=== PATIENT | female | born 1945 | race Caucasian/White ===

== ENCOUNTER 2021-03-23 17:16 | Inpatient (IN) | payer MEDICARE, OTHER ==
[~2021-03-23] VITALS: Ht 167.6 cm; Wt 70.3 kg
--- NOTE | 2021-03-23 17:16 | NUR ---
PT BIB [facility]OTHER [facility] FOR CRISIS EVAL PRIOR TO GEROPSYCH ADMISSION. PT IS AAOX2, NOT IN RESPIRATORY DISTRESS, V/S STABLE, KEPT RESTED AND COMFORTABLE. WILL CONTINUE TO MONITOR.
--- NOTE | 2021-03-23 18:13 | NUR ---
CALLED PINKY HER ETA IS 1930.
--- NOTE | 2021-03-23 18:35 | NUR ---
ER PHLEB AT BEDSIDE FOR BLOOD DRAW.
[2021-03-23 18:47] LABS: BASOPHILS % (AUTO) 0.5 % (0.0-2.0); EOSINOPHILS % (AUTO) 0.2 % (0.0-6.0); HEMATOCRIT 41 % (33-45); HEMOGLOBIN 13.5 g/dL (11.5-14.8); LYMPHOCYTES # (AUTO) 1.5 K/uL (0.8-4.8); LYMPHOCYTES % (AUTO) 23.7 % (20.0-44.0); MEAN CORPUSCULAR HGB CONC 33 g/dl (31.0-36.0); MEAN CORPUSCULAR VOLUME 90 fL (82-100); MONOCYTES # (AUTO) 0.6 K/uL (0.1-1.30); MONOCYTES % (AUTO) 9.2 % (2.0-12.0); NEUTROPHILS # (AUTO) 4.2 K/uL (1.8-8.9); NEUTROPHILS % (AUTO) 66.4 % (43.0-81.0); PLATELET COUNT (AUTO) 254 K/uL (150-450); RED BLOOD CELL COUNT(AUTO) 4.49 MIL/uL (4.0-5.2); WHITE BLOOD COUNT (AUTO) 6.3 K/uL (4.3-11.0)
[2021-03-23 19:03] LABS: CALCIUM, SERUM 8.5 mg/dL (8.5-10.1); CARBON DIOXIDE 27 mmol/L (21-32); CHLORIDE 101 mmol/L (98-107); CREATININE 0.6 mg/dL (0.6-1.3); GLUCOSE 87 mg/dL (74-106); SODIUM SERUM 137 mmol/L (136-145); UREA NITROGEN, BLOOD 7 mg/dL (7-18)
[2021-03-23 19:09] LABS: ALANINE AMINOTRANSFERASE 21 U/L (12-78); ALBUMIN 3.4 g/dL (3.4-5.0); ALKALINE PHOSPHATASE 72 U/L (46-116); ASPARTATE AMINOTRANSFERASE 16 U/L (15-37); BILIRUBIN,DIRECT 0.1 mg/dL (0.0-0.2); BILIRUBIN,TOTAL 0.3 mg/dL (0.2-1.0); TOTAL PROTEIN, SERUM 7.8 g/dL (6.4-8.2)
[2021-03-23 19:11] LABS: ACETAMINOPHEN < 2 ug/ml (10-30); ALCOHOL, BLOOD < 3 mg/dL (0-0)
[2021-03-23] MEDS ORDERED: POTASSIUM CHLORIDE 20 MEQ TAB.PRT.SR PO ONE (19:30)
--- NOTE | 2021-03-23 19:37 | NUR ---
COVID SWAB COLLECTED AND SENT TO LAB
--- NOTE | 2021-03-23 21:02 | NUR ---
gps 219
--- NOTE | 2021-03-23 21:11 | NUR ---
REPORT GIVEN TO GPS RN
--- NOTE | 2021-03-23 21:28 | NUR ---
PATIENT TRANSFERRED, VSS, NO ACUTE DISTRESS NOTED
[2021-03-23] MEDS ORDERED: BLOOD SUGAR DIAGNOSTIC 1 EACH STRIP IN ONE (22:00)
[2021-03-23] MEDS ORDERED: MAGNESIUM HYDROXIDE 30 ML UDC PO PRN (22:00)
--- NOTE | 2021-03-23 22:45 | NUR ---
GPS/DAY PORTER ADMISSION NOTES: RECEIVED 75 YEAR OLD FEMALE ON A 5150 HOLD FOR GD. PT. A/O X1-2. NO DISTRESS OR AGITATION NOTED AT THIS TIME. PT. ORIENTED TO UNIT POLICIES, ROUTINES, AND PROCEDURES. CALL SHAFFER WITHIN REACH. PT. BELONGINGS LOGGED AND CONTRABAND LOGGED AND PLACED IN LOCKED CABINET. SAFETY ENVIRONMENT OBSERVED. MEDICAL AND PSYCH DR. NOTIFIED OF PT. ADMISSION TO UNIT. FAMILY ALSO NOTIFIED OF PT. ADMISSION.
[2021-03-23 22:47] VITALS: BP 114/77
[2021-03-23] MEDS ORDERED: PANT40TA49 PO (22:51)
[2021-03-23] MEDS ORDERED: GUAI600T53 PO (22:51)
[2021-03-23] MEDS ORDERED: CHOL200059 PO (22:51)
[2021-03-23] MEDS ORDERED: TRAM50TA2 PO (22:51)
[2021-03-23] MEDS ORDERED: MIRT-91 PO (22:51)
[2021-03-23] MEDS ORDERED: AMLO-212 PO (22:51)
[2021-03-23] MEDS ORDERED: ZOFRAN (22:59)
[2021-03-23] MEDS ORDERED: VENL75TA4 PO (22:59)
[2021-03-23] MEDS ORDERED: CALC-1143 PO (22:59)
[2021-03-23] MEDS ORDERED: MONT10TA22 PO (22:59)
[2021-03-23] MEDS ORDERED: TIOT18CA3 INH (23:15)
[2021-03-23] MEDS ORDERED: ARIP15TA3 PO (23:15)
[2021-03-23] MEDS ORDERED: DICY10CA13 PO (23:15)
[2021-03-23] MEDS ORDERED: LOSA1TAB9 PO (23:15)
[2021-03-23] MEDS ORDERED: ONDA4TAB5 PO (23:15)
[2021-03-23] MEDS ORDERED: CHOL200013 PO (23:15)
[2021-03-23] MEDS ORDERED: FLUT16SP16 BNOSTRILS (23:16)
--- NOTE | 2021-03-23 23:36 | NUR ---
RN NOTE PER PATIENT TO CALL HER DAUGHTER KARTHIKEYAN VELOZ IN THE MORNING AT [phone] TO NOTIFY HER ABOUT PATIENT'S ADMISSION AT [facility] GPS UNIT. WILL INFORM KARTHIKEYAN IN THE MORNING PER PATIENT REQUEST.
[2021-03-24] MEDS ORDERED: DICYCLOMINE HCL 10 MG CAPSULE PO SCH
[2021-03-24] MEDS ORDERED: TEMAZEPAM 7.5 MG CAPSULE PO PRN
[2021-03-24 00:42] VITALS: BP 114/77
--- NOTE | 2021-03-24 01:15 | NUR ---
RN NOTE PATIENT SEEN BY DR. PICKENS AND MD RECONCILED THE MEDICATIONS. PATIENT IS SLEEPING COMFORTABLY AT THIS TIME. WILL CONTINUE TO MONITOR THE PATIENT FOR ANY CHANGE OF CONDITION.
--- NOTE | 2021-03-24 06:50 | NUR ---
RN NOTE DR. GLEZ NOTIFIED ABOUT PATIENT'S ADMISSIONS AT [facility], GPS TO ROOM 219-2.
--- NOTE | 2021-03-24 07:19 | NUR ---
RN NOTE: FAMILY NOTIFIED CALLED PATIENT'S DAUGHTER KARTHIKEYAN AT [phone] AND LEFT A VOICEMAIL INCLUDING GPS UNIT PHONE NUMBER ABOUT PATIENT'S ADMISSION AT [facility], GPS UNIT.
[2021-03-24 08:00] VITALS: BP 136/75
[2021-03-24 08:08] LABS: CREATININE 0.8 mg/dL (0.6-1.3)
[2021-03-24] MEDS ORDERED: TIOTROPIUM BROMIDE 6 CAP/BOX CAP.W.DEV IH SCH (09:00)
[2021-03-24] MEDS: CHOLECALCIFEROL 1,000 UNIT TABLET (VIT D3) PO SCH (09:06)
[2021-03-24] MEDS: CALCIUM CARBONATE (1250) 500 MG TABLET PO SCH ×2 (09:06→16:34)
[2021-03-24] MEDS: GUAIFENESIN LA 600 MG TABLET.SA PO SCH ×2 (09:06→16:34)
[2021-03-24] MEDS: MONTELUKAST SODIUM (10MG) 10 MG TABLET PO SCH (09:06)
[2021-03-24] MEDS: PANTOPRAZOLE 40 MG TABLET.DR PO SCH ×2 (09:06→16:34)
[2021-03-24] MEDS: HYDROCHLOROTHIAZIDE 25 MG TABLET PO SCH (09:07)
[2021-03-24] MEDS: AMLODIPINE BESYLATE 5 MG TABLET PO SCH (09:07)
[2021-03-24] MEDS: LOSARTAN POTASSIUM 50 MG TABLET PO SCH (09:07)
[2021-03-24] MEDS: FLUTICASONE PROPIONATE 16 GM BOTTLE NS SCH (09:08)
--- NOTE | 2021-03-24 09:49 | NUR ---
DEL Initial Discharge Plan: Pt will return back to [facility] or pt will require placement. DEL will work with the MD and treatment team to coordinate appropriate discharge.
--- NOTE | 2021-03-24 10:06 | NUR ---
Person to Notify: SW attempted to contact pt's person to notify Paty family service caseworker from [facility] ([phone]) and attempted to leave a voicemail, however, voicemail stated she is on vacation until April 04. DEL contacted main line ([phone]) of the [facility] and left a voicemail to gather collateral.
--- NOTE | 2021-03-24 10:10 | NUR ---
DEL Family Contact: DEL attempted to contact pt's daughter Ginna ([phone]) and her voicemail stated she is out of the country and to contact through email [email or web address]. DLE left a voicemail.
--- NOTE | 2021-03-24 10:19 | NUR ---
[facility] Care: DEL contacted [facility] where pt has been residing for 3-4 years. DEL spoke with Emma alexandru ([phone]) who stated pt is welcomed back upon dc. Emma expressed pt does not have DPOA and conservator. She shared that pt's daughter Ginna is in [place], however, is minimally involved and would want pt back. Emma expressed that pt has been for many years and has been having paranoia/delusionals of her ex-. Emma expressed the past two weeks she has been deteriorating. Emma shared that they do not provide transportation and that case assistant Paty arranges this. DEL will be in contact with Paty to coordinate this upon dc.
[2021-03-24] MEDS: IPRATROPIUM NEB FS 0.5 MG/2.5 ML AMPUL.NEB IH SCH ×2 (14:46→20:17)
[2021-03-24 16:00] VITALS: BP 125/91
[2021-03-24] MEDS ORDERED: MIRTAZAPINE 15 MG TABLET PO SCH (18:00)
[2021-03-24 20:00] VITALS: BP 136/80
[2021-03-24] MEDS ORDERED: ARIPIPRAZOLE 5 MG TABLET PO SCH (21:00)
[2021-03-24] MEDS: MIRTAZAPINE 15 MG TABLET PO SCH (21:24)
[2021-03-24] MEDS: TRAMADOL HCL 50 MG TABLET PO PRN (21:57)
--- NOTE | 2021-03-24 21:57 | NUR ---
GPS-RN NOTE: LOWER BACK PAIN PATIENT C/O LOWER BACK PAIN ON A PAIN SCALE OF 7/10. PRN TRAMADOL 100MG PO GIVEN. WILL CONTINUE TO REASSESS.
[2021-03-25] MEDS: IPRATROPIUM NEB FS 0.5 MG/2.5 ML AMPUL.NEB IH SCH ×4 (02:07→19:30)
[2021-03-25] MEDS: ACETAMINOPHEN 325 MG TABLET PO PRN (05:31)
[2021-03-25 08:00] VITALS: BP 107/64
[2021-03-25] MEDS: CHOLECALCIFEROL 1,000 UNIT TABLET (VIT D3) PO SCH (08:23)
[2021-03-25] MEDS: PANTOPRAZOLE 40 MG TABLET.DR PO SCH ×2 (08:23→17:03)
[2021-03-25] MEDS: GUAIFENESIN LA 600 MG TABLET.SA PO SCH ×2 (08:23→17:03)
[2021-03-25] MEDS: AMLODIPINE BESYLATE 5 MG TABLET PO SCH (08:23)
[2021-03-25] MEDS: MONTELUKAST SODIUM (10MG) 10 MG TABLET PO SCH (08:23)
[2021-03-25] MEDS: CALCIUM CARBONATE (1250) 500 MG TABLET PO SCH ×2 (08:23→17:03)
[2021-03-25] MEDS: HYDROCHLOROTHIAZIDE 25 MG TABLET PO SCH (08:24)
[2021-03-25] MEDS: LOSARTAN POTASSIUM 50 MG TABLET PO SCH (08:24)
[2021-03-25] MEDS: VENLAFAXINE XR 75 MG CAP.SR.24H PO SCH (08:26)
[2021-03-25] MEDS: FLUTICASONE PROPIONATE 16 GM BOTTLE NS SCH (08:28)
--- NOTE | 2021-03-25 10:08 | NUR ---
DEL Family Contact: DEL spoke with pt's daughter Ginna ([phone]) EMAIL: [email or web address], through email. Ginna expressed that she is minimally involved in pt's care because she lives in [place]. Daughter stated that she would want pt back to her assisted living upon discharge.
[2021-03-25] MEDS: ONDANSETRON 4 MG TAB.RAPDIS PO PRN (10:23)
[2021-03-25] MEDS: TRAMADOL HCL 50 MG TABLET PO PRN (10:57)
[2021-03-25 15:57] VITALS: BP 129/69
--- NOTE | 2021-03-25 19:30 | NUR ---
GPS RN NOTE, RECEIVED PATIENT AWAKE AND IN BED, NO S/S OR COMPLAINTS OF PAIN AT THIS TIME. PATIENT IS DISPLAYING NO S/S OF APPARENT DISTRESS AT THIS TIME. PATIENT BREATHING IS UNLABORED WITH EQUAL RISE AND FALL OF THE CHEST. PATIENT IS ALERT AND ORIENTED X 2 ON ROOM AIR WITH A SPO2 96%. PATIENT IS COMPLIANT WITH MEDICATIONS, RESPONDING, NEEDY, COOPERATIVE AND NEEDS REDIRECTION. PATIENT DENIES SUICIDAL AND HOMICIDAL IDEATIONS AT THIS TIME. PATIENT ASSISTED WITH TURNING AND REPOSITIONING Q2HR AND PRN FOR COMFORT AND CIRCULATION. PATIENT HAS NO NEEDS AT THIS TIME. PATIENT EDUCATED ON THE USE OF THE CALL SHAFFER. PATIENT BED SIDE RAILS UP X 2 FOR SAFETY. PATIENT BED IS LOCKED, LOW, WITH BED ALARM ON. WILL CONTINUE TO MONITOR THIS PATIENT Q15 MINUTES WITH THE HELP OF STAFF TO MAINTAIN SAFETY.
[2021-03-25 20:17] VITALS: BP 123/77
[2021-03-25] MEDS: MIRTAZAPINE 15 MG TABLET PO SCH (21:00)
[2021-03-25] MEDS: ARIPIPRAZOLE 5 MG TABLET PO SCH (21:00)
--- NOTE | 2021-03-25 21:22 | NUR ---
GPS RN NOTE, PATIENT REFUSED ABILIFY 15MG PO Q2100 AND REMERON 15MG PO Q2100. OFFERED AFOREMENTIONED MEDICATION THREE TIMES AND STILL PATIENT REFUSED STATING, " NO I DON'T NEED THOSE MEDICATIONS ". EDUCATED PATIENT ON THE RISKS AND BENEFITS OF TAKING AND REFUSING ABILIFY AND REMERON. WILL CONTINUE TO MONITOR THIS PATIENT WITH THE HELP OF STAFF.
[2021-03-26] MEDS: IPRATROPIUM NEB FS 0.5 MG/2.5 ML AMPUL.NEB IH SCH ×4 (01:30→21:42)
[2021-03-26 08:00] VITALS: BP 129/83
[2021-03-26] MEDS: VENLAFAXINE XR 75 MG CAP.SR.24H PO SCH ×2 (09:26→13:53)
[2021-03-26] MEDS: LOSARTAN POTASSIUM 50 MG TABLET PO SCH ×2 (09:26→14:00)
[2021-03-26] MEDS: CHOLECALCIFEROL 1,000 UNIT TABLET (VIT D3) PO SCH ×2 (09:27→13:53)
[2021-03-26] MEDS: CALCIUM CARBONATE (1250) 500 MG TABLET PO SCH ×3 (09:27→17:14)
[2021-03-26] MEDS: GUAIFENESIN LA 600 MG TABLET.SA PO SCH ×3 (09:27→17:14)
[2021-03-26] MEDS: MONTELUKAST SODIUM (10MG) 10 MG TABLET PO SCH ×2 (09:27→13:53)
[2021-03-26] MEDS: PANTOPRAZOLE 40 MG TABLET.DR PO SCH ×2 (09:27→17:14)
[2021-03-26] MEDS: AMLODIPINE BESYLATE 5 MG TABLET PO SCH ×2 (09:27→13:52)
[2021-03-26] MEDS: HYDROCHLOROTHIAZIDE 25 MG TABLET PO SCH ×2 (09:28→13:53)
[2021-03-26] MEDS: FLUTICASONE PROPIONATE 16 GM BOTTLE NS SCH (09:29)
[2021-03-26 16:00] VITALS: BP 121/86
[2021-03-26] MEDS: TRAMADOL HCL 50 MG TABLET PO PRN ×2 (18:16→22:24)
--- NOTE | 2021-03-26 18:27 | NUR ---
PATIENT COMPLAIN OF LOWER BACK PAIN MEDICATED WITH TRAMADOL WILL CONTINUE TO MONITOR .
--- NOTE | 2021-03-26 19:30 | NUR ---
GPS RN NOTE, RECEIVED PATIENT AWAKE AND IN BED, NO S/S OR COMPLAINTS OF PAIN AT THIS TIME. PATIENT IS DISPLAYING NO S/S OF APPARENT DISTRESS AT THIS TIME. PATIENT BREATHING IS UNLABORED WITH EQUAL RISE AND FALL OF THE CHEST. PATIENT IS ALERT AND ORIENTED X 2 ON ROOM AIR WITH A SPO2 97%. PATIENT IS COMPLIANT WITH MEDICATIONS, RESPONDING, NEEDY, COOPERATIVE AND NEEDS REDIRECTION. PATIENT DENIES SUICIDAL AND HOMICIDAL IDEATIONS AT THIS TIME. PATIENT ASSISTED WITH TURNING AND REPOSITIONING Q2HR AND PRN FOR COMFORT AND CIRCULATION. PATIENT HAS NO NEEDS AT THIS TIME. PATIENT EDUCATED ON THE USE OF THE CALL SHAFFER. PATIENT BED SIDE RAILS UP X 2 FOR SAFETY. PATIENT BED IS LOCKED, LOW, WITH BED ALARM ON. WILL CONTINUE TO MONITOR THIS PATIENT Q15 MINUTES WITH THE HELP OF STAFF TO MAINTAIN SAFETY.
[2021-03-26 20:11] VITALS: BP 137/77
[2021-03-26 20:14] VITALS: BP 137/77
[2021-03-26] MEDS: MIRTAZAPINE 15 MG TABLET PO SCH (21:37)
[2021-03-26] MEDS: ARIPIPRAZOLE 5 MG TABLET PO SCH (21:37)
--- NOTE | 2021-03-26 22:27 | NUR ---
GPS RN NOTE, PATIENT HAS A COMPLAINT OF LOWER BACK PAIN AT 4 OUT 10 ON THE PAIN SCALE AND IS REQUESTING ULTRAM AT THIS TIME. PATIENT VITAL SIGNS ARE STABLE. GAVE ULTRAM 100 MG PO QID PRN ORDERED. WILL REASSESS PAIN AND I WILL CONTINUE TO MONITOR THIS PATIENT WITH THE HELP OF STAFF.
[2021-03-27] MEDS: IPRATROPIUM NEB FS 0.5 MG/2.5 ML AMPUL.NEB IH SCH ×4 (01:30→19:30)
--- NOTE | 2021-03-27 01:46 | NUR ---
RT NOTE PT SLEEPING. HHN TX NOT GIVEN. NO RESP DISTRESS NOTED AT THIS TIME
[2021-03-27 08:00] VITALS: BP 101/60
[2021-03-27] MEDS: LOSARTAN POTASSIUM 50 MG TABLET PO SCH (09:00)
[2021-03-27] MEDS: GUAIFENESIN LA 600 MG TABLET.SA PO SCH ×2 (09:02→16:17)
[2021-03-27] MEDS: VENLAFAXINE XR 75 MG CAP.SR.24H PO SCH (09:02)
[2021-03-27] MEDS: AMLODIPINE BESYLATE 5 MG TABLET PO SCH (09:03)
[2021-03-27] MEDS: HYDROCHLOROTHIAZIDE 25 MG TABLET PO SCH (09:03)
[2021-03-27] MEDS: CALCIUM CARBONATE (1250) 500 MG TABLET PO SCH ×2 (09:03→16:17)
[2021-03-27] MEDS: MONTELUKAST SODIUM (10MG) 10 MG TABLET PO SCH (09:03)
[2021-03-27] MEDS: CHOLECALCIFEROL 1,000 UNIT TABLET (VIT D3) PO SCH (09:03)
[2021-03-27] MEDS: PANTOPRAZOLE 40 MG TABLET.DR PO SCH ×2 (09:04→16:16)
[2021-03-27] MEDS: ONDANSETRON 4 MG TAB.RAPDIS PO PRN ×2 (09:12→16:17)
[2021-03-27] MEDS: TRAMADOL HCL 50 MG TABLET PO PRN ×2 (09:12→16:16)
[2021-03-27] MEDS: FLUTICASONE PROPIONATE 16 GM BOTTLE NS SCH (09:48)
[2021-03-27] MEDS: MAG HYDROX/AL HYDROX/SIMETH 30 ML UDC PO PRN (10:56)
[2021-03-27 16:10] VITALS: BP 99/66
[2021-03-27 20:00] VITALS: BP 102/65
--- NOTE | 2021-03-27 20:00 | NUR ---
GPS-RN NOTE: PATIENT REFUSED WEEKLY SKIN ASSESSMENT. EXPLAINED RISKS AND BENEFITS. PATIENT CONTINUED TO REFUSE.
--- NOTE | 2021-03-27 20:24 | NUR ---
RT NOTE PT REFUSED HHN TX. SPO2 97% NO DISTRESS NOTED @ THIS TIME. RN AWARE.
[2021-03-27] MEDS: ARIPIPRAZOLE 5 MG TABLET PO SCH (21:01)
[2021-03-27] MEDS: MIRTAZAPINE 15 MG TABLET PO SCH (21:01)
[2021-03-28] MEDS: IPRATROPIUM NEB FS 0.5 MG/2.5 ML AMPUL.NEB IH SCH ×5 (01:30→20:24)
--- NOTE | 2021-03-28 07:30 | NUR ---
RN NOTES PATIENT IS NEEDY, ISOLATIVE AND WITHDRAWN. SUSPICIOUS. DELUSIONAL, SHE WAS STATING THAT SHE IS GOING TO HER TODAY. SHE IS PREOCCUPIED. SHE IS UNMOTIVATED TO SHOWER. I ENCOURAGED HER TO ATTEND GROUPS AND ASSISTED HER TO ADL.
[2021-03-28 08:00] VITALS: BP 138/70
[2021-03-28] MEDS: CHOLECALCIFEROL 1,000 UNIT TABLET (VIT D3) PO SCH (09:01)
[2021-03-28] MEDS: GUAIFENESIN LA 600 MG TABLET.SA PO SCH ×2 (09:01→17:03)
[2021-03-28] MEDS: FLUTICASONE PROPIONATE 16 GM BOTTLE NS SCH (09:01)
[2021-03-28] MEDS: LORAZEPAM 0.5 MG TABLET PO PRN (09:01)
[2021-03-28] MEDS: VENLAFAXINE XR 75 MG CAP.SR.24H PO SCH (09:01)
[2021-03-28] MEDS: CALCIUM CARBONATE (1250) 500 MG TABLET PO SCH ×2 (09:02→17:03)
[2021-03-28] MEDS: PANTOPRAZOLE 40 MG TABLET.DR PO SCH ×2 (09:02→17:03)
[2021-03-28] MEDS: LOSARTAN POTASSIUM 50 MG TABLET PO SCH (09:02)
[2021-03-28] MEDS: AMLODIPINE BESYLATE 5 MG TABLET PO SCH (09:03)
[2021-03-28] MEDS: HYDROCHLOROTHIAZIDE 25 MG TABLET PO SCH (09:03)
--- NOTE | 2021-03-28 09:10 | NUR ---
Dental Office Receptionist: SW received a call from adult protective caseworker Paty ([phone]) who stated that she will provide transportation upon dc.
[2021-03-28] MEDS: MONTELUKAST SODIUM (10MG) 10 MG TABLET PO SCH (09:12)
[2021-03-28 16:00] VITALS: BP 122/60
[2021-03-28 16:23] VITALS: BP 122/60
[2021-03-28 20:10] VITALS: BP 100/68
[2021-03-28] MEDS: MIRTAZAPINE 15 MG TABLET PO SCH (21:57)
[2021-03-28] MEDS: ARIPIPRAZOLE 5 MG TABLET PO SCH (21:58)
[2021-03-28] MEDS: ACETAMINOPHEN 325 MG TABLET PO PRN (22:01)
--- NOTE | 2021-03-28 22:01 | NUR ---
Pt co/ generalized body pain 07/21. Tylenol 650 mg po prn given as ordered. Will continue to monitor.
--- NOTE | 2021-03-28 22:25 | NUR ---
Post 1 hr Tylenol effective. HI 0/10. Frequent visual check done for safety. Will continue to monitor.
[2021-03-29] MEDS: IPRATROPIUM NEB FS 0.5 MG/2.5 ML AMPUL.NEB IH SCH ×4 (00:32→20:42)
[2021-03-29 08:00] VITALS: BP 143/71
[2021-03-29] MEDS ORDERED: VENLAFAXINE XR 75 MG CAP.SR.24H PO SCH (09:00)
[2021-03-29] MEDS: PANTOPRAZOLE 40 MG TABLET.DR PO SCH ×2 (09:32→17:36)
[2021-03-29] MEDS: AMLODIPINE BESYLATE 5 MG TABLET PO SCH (09:33)
[2021-03-29] MEDS: CALCIUM CARBONATE (1250) 500 MG TABLET PO SCH ×2 (09:43→17:36)
[2021-03-29] MEDS: GUAIFENESIN LA 600 MG TABLET.SA PO SCH ×2 (09:43→17:36)
[2021-03-29] MEDS: HYDROCHLOROTHIAZIDE 25 MG TABLET PO SCH (09:44)
[2021-03-29] MEDS: CHOLECALCIFEROL 1,000 UNIT TABLET (VIT D3) PO SCH (09:45)
[2021-03-29] MEDS: LOSARTAN POTASSIUM 50 MG TABLET PO SCH (09:45)
[2021-03-29] MEDS: FLUTICASONE PROPIONATE 16 GM BOTTLE NS SCH (09:51)
[2021-03-29] MEDS: MONTELUKAST SODIUM (10MG) 10 MG TABLET PO SCH (09:51)
[2021-03-29 16:36] VITALS: BP 119/50
[2021-03-29] MEDS: TRAMADOL HCL 50 MG TABLET PO PRN (17:43)
--- NOTE | 2021-03-29 17:43 | NUR ---
PATIENT C/O BACK PAIN 01/21 WILL CONTINUE TO MONITOR FOR PAIN.
[2021-03-29 20:15] VITALS: BP 138/60
[2021-03-29] MEDS: ARIPIPRAZOLE 5 MG TABLET PO SCH (21:33)
[2021-03-29] MEDS: MIRTAZAPINE 15 MG TABLET PO SCH (21:34)
[2021-03-30] MEDS: IPRATROPIUM NEB FS 0.5 MG/2.5 ML AMPUL.NEB IH SCH ×4 (02:07→20:05)
[2021-03-30 08:00] VITALS: BP 97/62
[2021-03-30] MEDS: HYDROCHLOROTHIAZIDE 25 MG TABLET PO SCH (09:00)
[2021-03-30] MEDS: LOSARTAN POTASSIUM 50 MG TABLET PO SCH (09:00)
[2021-03-30] MEDS: AMLODIPINE BESYLATE 5 MG TABLET PO SCH (09:00)
[2021-03-30] MEDS: ONDANSETRON 4 MG TAB.RAPDIS PO PRN ×2 (09:58→20:55)
--- NOTE | 2021-03-30 09:58 | NUR ---
GIVEN ZOFRAN FOR NAUSEA.
[2021-03-30] MEDS: FLUTICASONE PROPIONATE 16 GM BOTTLE NS SCH (11:28)
[2021-03-30] MEDS: PANTOPRAZOLE 40 MG TABLET.DR PO SCH ×2 (11:28→18:07)
[2021-03-30] MEDS: CHOLECALCIFEROL 1,000 UNIT TABLET (VIT D3) PO SCH (11:28)
[2021-03-30] MEDS: CALCIUM CARBONATE (1250) 500 MG TABLET PO SCH ×2 (11:28→18:07)
[2021-03-30] MEDS: TRAMADOL HCL 50 MG TABLET PO PRN ×2 (11:29→18:19)
[2021-03-30] MEDS: GUAIFENESIN LA 600 MG TABLET.SA PO SCH ×2 (11:29→18:07)
[2021-03-30] MEDS: MONTELUKAST SODIUM (10MG) 10 MG TABLET PO SCH (11:29)
--- NOTE | 2021-03-30 11:29 | NUR ---
GIVEN ULTRAM FOR BACK PAIN.
--- NOTE | 2021-03-30 12:44 | NUR ---
Court Hearing: Patient's court hearing for 8840 was today and it was upheld for GD.
[2021-03-30] MEDS: ACETAMINOPHEN 325 MG TABLET PO PRN (14:10)
--- NOTE | 2021-03-30 14:10 | NUR ---
GIVEN TYLENOL FOR HEADACHE.
[2021-03-30 16:00] VITALS: BP 126/58
--- NOTE | 2021-03-30 18:14 | NUR ---
just medicated with ultram for back pain.
[2021-03-30 20:00] VITALS: BP 122/74
[2021-03-30] MEDS: ARIPIPRAZOLE 5 MG TABLET PO SCH (20:55)
--- NOTE | 2021-03-30 20:55 | NUR ---
RN NOTE PT COMPLAINED OF NAUSEA. NO VOMITING NOTED. REQUESTED FOR ZOFRAN, GIVEN ORDERED. DENIES ANY PAIN AT THIS TIME, WILL CONTINUE TO MONITOR.
[2021-03-30] MEDS: MIRTAZAPINE 15 MG TABLET PO SCH (21:59)
[2021-03-31] MEDS: IPRATROPIUM NEB FS 0.5 MG/2.5 ML AMPUL.NEB IH SCH ×4 (02:03→20:10)
[2021-03-31 08:00] VITALS: BP 121/67
[2021-03-31] MEDS: HYDROCHLOROTHIAZIDE 25 MG TABLET PO SCH (08:58)
[2021-03-31] MEDS: CHOLECALCIFEROL 1,000 UNIT TABLET (VIT D3) PO SCH (08:58)
[2021-03-31] MEDS: PANTOPRAZOLE 40 MG TABLET.DR PO SCH ×2 (08:58→16:16)
[2021-03-31] MEDS: GUAIFENESIN LA 600 MG TABLET.SA PO SCH ×2 (08:58→16:16)
[2021-03-31] MEDS: CALCIUM CARBONATE (1250) 500 MG TABLET PO SCH ×2 (08:58→16:16)
[2021-03-31] MEDS: MONTELUKAST SODIUM (10MG) 10 MG TABLET PO SCH (08:58)
[2021-03-31] MEDS: LOSARTAN POTASSIUM 50 MG TABLET PO SCH (09:00)
[2021-03-31] MEDS: FLUTICASONE PROPIONATE 16 GM BOTTLE NS SCH (09:01)
[2021-03-31] MEDS: AMLODIPINE BESYLATE 5 MG TABLET PO SCH (09:02)
[2021-03-31 16:00] VITALS: BP 119/75
[2021-03-31 20:00] VITALS: BP 110/65
[2021-03-31] MEDS: ARIPIPRAZOLE 5 MG TABLET PO SCH (21:24)
[2021-03-31] MEDS: MIRTAZAPINE 15 MG TABLET PO SCH (21:24)
[2021-04-01] MEDS: IPRATROPIUM NEB FS 0.5 MG/2.5 ML AMPUL.NEB IH SCH ×4 (01:43→20:03)
[2021-04-01 08:00] VITALS: BP 110/72
[2021-04-01] MEDS ORDERED: ENSURE ENLIVE CHOC 237 ML CAN PO SCH (08:00)
[2021-04-01] MEDS: GUAIFENESIN LA 600 MG TABLET.SA PO SCH ×2 (09:02→17:28)
[2021-04-01] MEDS: CALCIUM CARBONATE (1250) 500 MG TABLET PO SCH ×2 (09:02→17:27)
[2021-04-01] MEDS: PANTOPRAZOLE 40 MG TABLET.DR PO SCH ×2 (09:02→17:27)
[2021-04-01] MEDS: CHOLECALCIFEROL 1,000 UNIT TABLET (VIT D3) PO SCH (09:02)
[2021-04-01] MEDS: MONTELUKAST SODIUM (10MG) 10 MG TABLET PO SCH (09:02)
[2021-04-01] MEDS: LOSARTAN POTASSIUM 50 MG TABLET PO SCH (09:03)
[2021-04-01] MEDS: HYDROCHLOROTHIAZIDE 25 MG TABLET PO SCH (09:03)
[2021-04-01] MEDS: AMLODIPINE BESYLATE 5 MG TABLET PO SCH (09:03)
[2021-04-01] MEDS: FLUTICASONE PROPIONATE 16 GM BOTTLE NS SCH (09:05)
[2021-04-01] MEDS: TRAMADOL HCL 50 MG TABLET PO PRN ×2 (11:35→21:14)
--- NOTE | 2021-04-01 14:34 | NUR ---
RN-NOTES CHARGE NURSE DID FAXED RX FROM DR. GLEZ TO [facility] ( FAX # [phone]). RECEIVED AND VERIFIED BY THE PHARMACY STAFF AND ITS READY FOR CREEL CLEANER UPON DISCHARGE PER THE CHARGE NURSE.
[2021-04-01 16:00] VITALS: BP 119/90
[2021-04-01] MEDS: ENSURE ENLIVE 237 ML LIQUID (VANILLA) PO SCH (17:12)
[2021-04-01] MEDS: MIRTAZAPINE 15 MG TABLET PO SCH (21:02)
[2021-04-01] MEDS: ARIPIPRAZOLE 5 MG TABLET PO SCH (21:02)
--- NOTE | 2021-04-01 21:14 | NUR ---
RN NOTE PATIENT GIVEN TRAMADOL PO 100 MG FOR SEVERE PAIN 10/10 ON HER LOWER AND MID BACK, WILL REASSESS PATIENT'S PAIN AT A LATER TIME.
[2021-04-01 21:19] VITALS: BP 95/67
[2021-04-02] MEDS: IPRATROPIUM NEB FS 0.5 MG/2.5 ML AMPUL.NEB IH SCH ×4 (01:43→20:59)
[2021-04-02 08:00] VITALS: BP 115/89
[2021-04-02] MEDS: ENSURE ENLIVE 237 ML LIQUID (VANILLA) PO SCH ×2 (08:00→16:47)
[2021-04-02] MEDS: HYDROCHLOROTHIAZIDE 25 MG TABLET PO SCH (09:00)
[2021-04-02] MEDS: AMLODIPINE BESYLATE 5 MG TABLET PO SCH (09:00)
[2021-04-02] MEDS: GUAIFENESIN LA 600 MG TABLET.SA PO SCH ×4 (09:00→17:00)
[2021-04-02] MEDS: LOSARTAN POTASSIUM 50 MG TABLET PO SCH (09:00)
[2021-04-02] MEDS: FLUTICASONE PROPIONATE 16 GM BOTTLE NS SCH (10:28)
[2021-04-02] MEDS: CALCIUM CARBONATE (1250) 500 MG TABLET PO SCH ×3 (10:32→17:00)
[2021-04-02] MEDS: CHOLECALCIFEROL 1,000 UNIT TABLET (VIT D3) PO SCH (10:32)
[2021-04-02] MEDS: MONTELUKAST SODIUM (10MG) 10 MG TABLET PO SCH (10:35)
[2021-04-02] MEDS: PANTOPRAZOLE 40 MG TABLET.DR PO SCH ×3 (10:35→17:00)
[2021-04-02] MEDS: TRAMADOL HCL 50 MG TABLET PO PRN ×3 (11:00→19:57)
[2021-04-02] MEDS: ONDANSETRON 4 MG TAB.RAPDIS PO PRN ×2 (11:00→20:47)
--- NOTE | 2021-04-02 11:00 | NUR ---
medicated for nausea and pain.
[2021-04-02 16:17] VITALS: BP 149/63
--- NOTE | 2021-04-02 16:28 | NUR ---
APPEARS TO BE RESTING COMFORTABLY IN BED.
--- NOTE | 2021-04-02 16:55 | NUR ---
GIVEN ULTRAM FOR SORE THROAT AND BACK PAIN.
--- NOTE | 2021-04-02 17:01 | NUR ---
VERY SUSPICIOUS WITH TAKING OF MEDS,SMELLING EACH PILL FIRST,THEN REFUSING ALL KADI. PILLS.
[2021-04-02 20:00] VITALS: BP 125/93
--- NOTE | 2021-04-02 20:47 | NUR ---
GPS RN NOTE PATIENT REPORTS HAVING NAUSEA BEFORE BREATHING TREATMENT. GIVEN ZOFRAN AT THIS TIME. DID PATIENT TEACHING TO NEXT TIME ASK FOR THE NAUSEA PILL BEFORE THE PAIN PILL NEXT TIME, PER PATIENT SHE DID NOT KNOW AND SHE WAS JUST SO FOCUSED ON THE PAIN HENCE SHE FORGOT. WILL CONTINUE TO MONITOR.
--- NOTE | 2021-04-02 20:56 | NUR ---
PATIENT JUST FINISHED WITH BREATHING TREATMENT. DROWSING OFF SITTING ON THE BED. I TOLD PATIENT TO BE LYING DOWN ON BED BECAUSE I DO NOT WANT HER DROWSING OFF OF THE BED AND FALLING, PER PATIENT SHE'S MORE COMFORTABLE THAT WAY AND SHE IS COMFORTABLE NOW. PER PATIENT SHE CANNOT LAY DOWN ANYWAYS BECAUSE OF HER BACK. WILL CONTINUE WITH Q15 CHECK.
[2021-04-02] MEDS: ARIPIPRAZOLE 5 MG TABLET PO SCH (21:50)
[2021-04-02] MEDS: MIRTAZAPINE 15 MG TABLET PO SCH (21:50)
[2021-04-03] MEDS: IPRATROPIUM NEB FS 0.5 MG/2.5 ML AMPUL.NEB IH SCH ×4 (01:30→20:37)
--- NOTE | 2021-04-03 02:06 | NUR ---
RT PT REFUSED TX BECAUSE SHE'S SLEEPING, RN IS AWARE. Addendum: 04/03/21 at 0208 by JASON MCCLENDON RT NO SIGN OF SOB OR RESPIRATORY DISTRESS NOTED AT THIS TIME.
[2021-04-03] MEDS: TRAMADOL HCL 50 MG TABLET PO PRN ×4 (02:26→21:09)
[2021-04-03 08:00] VITALS: BP 110/62
[2021-04-03] MEDS: ENSURE ENLIVE 237 ML LIQUID (VANILLA) PO SCH ×2 (08:22→17:22)
--- NOTE | 2021-04-03 08:23 | NUR ---
RT PT REF AM BREATHING TX, NO SOB OR RESP DISTRESS NOTED.
[2021-04-03] MEDS: MONTELUKAST SODIUM (10MG) 10 MG TABLET PO SCH (08:34)
[2021-04-03] MEDS: CALCIUM CARBONATE (1250) 500 MG TABLET PO SCH ×3 (08:34→17:18)
[2021-04-03] MEDS: GUAIFENESIN LA 600 MG TABLET.SA PO SCH ×3 (08:35→17:18)
[2021-04-03] MEDS: CHOLECALCIFEROL 1,000 UNIT TABLET (VIT D3) PO SCH (08:35)
[2021-04-03] MEDS: AMLODIPINE BESYLATE 5 MG TABLET PO SCH (08:36)
[2021-04-03] MEDS: HYDROCHLOROTHIAZIDE 25 MG TABLET PO SCH (08:36)
[2021-04-03] MEDS: LOSARTAN POTASSIUM 50 MG TABLET PO SCH (08:37)
[2021-04-03] MEDS: FLUTICASONE PROPIONATE 16 GM BOTTLE NS SCH ×2 (08:59→09:00)
[2021-04-03] MEDS: PANTOPRAZOLE 40 MG TABLET.DR PO SCH ×3 (09:00→17:18)
--- NOTE | 2021-04-03 09:00 | NUR ---
RN-CO: PT STATED KEEP THE MEDS I WILL TAKE IT AFTER AN HOUR.
--- NOTE | 2021-04-03 11:08 | NUR ---
RN-CO: PT REFUSED ALL HER MEDICATIONS, PT STATED " I WILL HAVE A SURGERY " BUT SHE CANNOT TELL WHEN IS HER SURGERY AND WHAT IS IT FOR. I EXPLAINED THE RISKS AND BENEFITS OF THE MEDICATIONS BUT SHE FIRMLY REFUSED.
[2021-04-03 16:00] VITALS: BP 129/72
[2021-04-03 20:25] VITALS: BP 108/72
[2021-04-03] MEDS: ARIPIPRAZOLE 5 MG TABLET PO SCH (21:08)
[2021-04-03] MEDS: LORAZEPAM 0.5 MG TABLET PO PRN (21:08)
[2021-04-03] MEDS: MIRTAZAPINE 15 MG TABLET PO SCH (21:09)
[2021-04-04] MEDS: IPRATROPIUM NEB FS 0.5 MG/2.5 ML AMPUL.NEB IH SCH ×4 (01:30→20:40)
--- NOTE | 2021-04-04 01:41 | NUR ---
RT NOTE PT REFUSED TX AT THIS TIME. RN DHRUV NOTIFIED AND AWARE. NO RESPIRATORY DISTRESS NOTED.
[2021-04-04 08:00] VITALS: BP 106/73
[2021-04-04] MEDS: ENSURE ENLIVE 237 ML LIQUID (VANILLA) PO SCH ×2 (08:51→16:54)
[2021-04-04] MEDS: FLUTICASONE PROPIONATE 16 GM BOTTLE NS SCH (09:00)
[2021-04-04] MEDS: CALCIUM CARBONATE (1250) 500 MG TABLET PO SCH ×2 (09:01→17:23)
[2021-04-04] MEDS: CHOLECALCIFEROL 1,000 UNIT TABLET (VIT D3) PO SCH (09:02)
[2021-04-04] MEDS: LOSARTAN POTASSIUM 50 MG TABLET PO SCH (09:02)
[2021-04-04] MEDS: HYDROCHLOROTHIAZIDE 25 MG TABLET PO SCH (09:02)
[2021-04-04] MEDS: PANTOPRAZOLE 40 MG TABLET.DR PO SCH ×2 (09:02→17:23)
[2021-04-04] MEDS: MONTELUKAST SODIUM (10MG) 10 MG TABLET PO SCH (09:02)
[2021-04-04] MEDS: GUAIFENESIN LA 600 MG TABLET.SA PO SCH ×2 (09:02→17:22)
[2021-04-04] MEDS: AMLODIPINE BESYLATE 5 MG TABLET PO SCH (09:03)
[2021-04-04 16:00] VITALS: BP 100/58
[2021-04-04] MEDS: ONDANSETRON 4 MG TAB.RAPDIS PO PRN (16:38)
[2021-04-04] MEDS: TRAMADOL HCL 50 MG TABLET PO PRN ×2 (16:39→22:17)
--- NOTE | 2021-04-04 16:40 | NUR ---
PT COMPLAINED OF NAUSEA AND BACK PAIN. ZOFRAN AND ULTRAM GIVEN INDICATED PRN. WILL CONTINUE TO MONITOR.
[2021-04-04] MEDS: ARIPIPRAZOLE 5 MG TABLET PO SCH (20:56)
[2021-04-04] MEDS: MIRTAZAPINE 15 MG TABLET PO SCH (20:56)
[2021-04-04] MEDS: MAG HYDROX/AL HYDROX/SIMETH 30 ML UDC PO PRN (21:01)
--- NOTE | 2021-04-04 21:01 | NUR ---
GPS-RN NOTES: MAALOX 30ML PO GIVEN FOR INDIGESTION. WILL CONTINUE TO MONITOR.
[2021-04-04 21:06] VITALS: BP 108/67
--- NOTE | 2021-04-04 22:17 | NUR ---
GPS-RN NOTE: LOWER BACK PAIN PATIENT C/O LOWER BACK PAIN ON A PAIN SCALE OF 7/10. PRN TRAMADOL 100MG PO GIVEN. WILL CONTINUE TO REASSESS.
[2021-04-05] MEDS: IPRATROPIUM NEB FS 0.5 MG/2.5 ML AMPUL.NEB IH SCH ×4 (01:30→19:30)
[2021-04-05 07:03] LABS: CALCIUM, SERUM 8.6 mg/dL (8.5-10.1); CREATININE 0.8 mg/dL (0.6-1.3); POTASSIUM 3.3 mmol/L (3.5-5.1)
--- NOTE | 2021-04-05 07:56 | NUR ---
SW Discharge Note: Patient will return back to [facility] located at [address] [place] [address]; ([phone]). Patients correctional case manager Paty ([phone]) will provide transportation at 1PM. Patients daughter Ginna ([phone]) is notified of pts discharge. Patient is alert and oriented x2 and is happy to be going back home. Pt denies visual/auditory hallucinations. Pt denies suicidal or homicidal ideation. Patient will follow up with (Psychiatrist) Dr. Lau located at [address], [place] [address]; ([phone]) at the facility who will monitor and provide psychotropic medications. Pt presents with euthymic mood and congruent affect. Addendum: 04/05/21 at 1338 by DEL HOPPER Discharge canceled due to patient being agitated and not wanting to leave. Dr. Hernandez notified and daughter notified.
[2021-04-05 08:00] VITALS: BP 112/63
[2021-04-05] MEDS: ENSURE ENLIVE 237 ML LIQUID (VANILLA) PO SCH ×2 (08:02→17:25)
[2021-04-05] MEDS: HYDROCHLOROTHIAZIDE 25 MG TABLET PO SCH (09:00)
[2021-04-05] MEDS: AMLODIPINE BESYLATE 5 MG TABLET PO SCH (09:00)
[2021-04-05] MEDS: LOSARTAN POTASSIUM 50 MG TABLET PO SCH (09:00)
[2021-04-05] MEDS: FLUTICASONE PROPIONATE 16 GM BOTTLE NS SCH (09:18)
[2021-04-05] MEDS: CALCIUM CARBONATE (1250) 500 MG TABLET PO SCH ×2 (09:22→17:25)
[2021-04-05] MEDS: MONTELUKAST SODIUM (10MG) 10 MG TABLET PO SCH (09:22)
[2021-04-05] MEDS: PANTOPRAZOLE 40 MG TABLET.DR PO SCH ×2 (09:23→17:25)
[2021-04-05] MEDS: CHOLECALCIFEROL 1,000 UNIT TABLET (VIT D3) PO SCH (09:23)
[2021-04-05] MEDS: GUAIFENESIN LA 600 MG TABLET.SA PO SCH ×2 (09:23→17:25)
[2021-04-05] MEDS: ONDANSETRON 4 MG TAB.RAPDIS PO PRN (10:44)
[2021-04-05] MEDS: TRAMADOL HCL 50 MG TABLET PO PRN (10:44)
--- NOTE | 2021-04-05 10:47 | NUR ---
PT COMPLAINED OF NAUSEA AND BACK PAIN. ZOFRAN AND ULTRAM GIVEN INDICATED PRN. WILL CONTINUE TO MONITOR.
[2021-04-05] MEDS ORDERED: POTASSIUM CHLORIDE 20 MEQ TAB.PRT.SR PO SCH (11:30)
[2021-04-05] MEDS: MAG HYDROX/AL HYDROX/SIMETH 30 ML UDC PO PRN (13:33)
--- NOTE | 2021-04-05 13:36 | NUR ---
MAALOX 30ML PO GIVEN FOR INDIGESTION. WILL CONTINUE TO MONITOR.
--- NOTE | 2021-04-05 14:03 | NUR ---
DEL Family Contact: DEL attempted to contact pt's daughter Ginna ([phone]) and her voicemail stated she is out of the country and to contact through email [email or web address]. DEL sent daughter and email in regards to pt's discharge and pt refusing to go back to her assisted living and that pt will need a nursing facility. DEL notified to be in contact with Paty to discuss further.
--- NOTE | 2021-04-05 14:03 | NUR ---
SNF Referral: SW contacted Yudi hale from [facility] ([phone]) for placement option. SW sent H & P notes, progress notes, and medication list.
[2021-04-05] MEDS: ARIPIPRAZOLE 5 MG TABLET PO SCH ×3 (14:07→21:41)
[2021-04-05] MEDS: DIVALPROEX SODIUM 125 MG CAP.SPRINK PO SCH ×2 (14:08→17:25)
--- NOTE | 2021-04-05 14:11 | NUR ---
PT TAKEN TO [facility] FOR DISCHARGE. AT THIS POINT PT RETURNED TO GPS UNIT PATIENCE WALDROP FROM [facility] REFUSED TO TAKE THE PATIENT DUE TO PT'S BEHAVIOR. SW AND CHARGE NURSE BROUGHT PT BACK TO GPS UNIT. WILL CONTINUE TO MONITOR. Addendum: 04/05/21 at 184 by MARCO PATTON RN DISCHARGE ORDER CANCELLED PER DR GLEZ. ALL BELONGINGS AND VALUABLES PLACED BACK IN PT'S LOCKER AND SAFE. Addendum: 04/05/21 at 185 by MARCO PATTON RN UNABLE TO PLACE BAG OF VALUABLES IN SAFE, WRITING TUTOR STATED THAT SHE COULD NOT DO THIS AT THIS TIME AND TO RETURN LATER AFTER SHIFT CHANGE. WILL ENDORSE TO MARCO EDWARDS IN ORDER TO HAVE VALUABLES PLACED IN SAFE.
--- NOTE | 2021-04-05 15:08 | NUR ---
SW Note: SW spoke with pt in regards to pt being accepted at [facility]. Pt is agreeing on going to nursing facility.
[2021-04-05 16:11] VITALS: BP 130/64
[2021-04-05 20:00] VITALS: BP 130/86
--- NOTE | 2021-04-06 01:25 | NUR ---
GPS RN NOTES: PATIENT SODIUM LEVEL 128. NOTIFIED KERZUMA VIA TEST. AWAITING RESPONSE.
[2021-04-06] MEDS: IPRATROPIUM NEB FS 0.5 MG/2.5 ML AMPUL.NEB IH SCH ×3 (01:30→13:30)
[2021-04-06] MEDS: ACETAMINOPHEN 325 MG TABLET PO PRN (05:37)
[2021-04-06 08:00] VITALS: BP 108/60
[2021-04-06] MEDS ORDERED: ARIPIPRAZOLE 5 MG TABLET PO SCH (08:00)
[2021-04-06 08:10] LABS: CALCIUM, SERUM 9.2 mg/dL (8.5-10.1); CREATININE 0.7 mg/dL (0.6-1.3); POTASSIUM 3.8 mmol/L (3.5-5.1)
[2021-04-06] MEDS: ARIPIPRAZOLE 5 MG TABLET PO SCH ×3 (08:42→17:37)
[2021-04-06] MEDS: MONTELUKAST SODIUM (10MG) 10 MG TABLET PO SCH (08:49)
[2021-04-06] MEDS: PANTOPRAZOLE 40 MG TABLET.DR PO SCH ×2 (08:49→17:43)
[2021-04-06] MEDS: CALCIUM CARBONATE (1250) 500 MG TABLET PO SCH ×2 (08:49→17:40)
[2021-04-06] MEDS: LOSARTAN POTASSIUM 50 MG TABLET PO SCH (08:50)
[2021-04-06] MEDS: GUAIFENESIN LA 600 MG TABLET.SA PO SCH ×2 (08:51→17:39)
[2021-04-06] MEDS: DIVALPROEX SODIUM 125 MG CAP.SPRINK PO SCH ×3 (08:51→17:38)
[2021-04-06] MEDS: AMLODIPINE BESYLATE 5 MG TABLET PO SCH (08:51)
[2021-04-06] MEDS: CHOLECALCIFEROL 1,000 UNIT TABLET (VIT D3) PO SCH (08:51)
[2021-04-06] MEDS: ENSURE ENLIVE 237 ML LIQUID (VANILLA) PO SCH ×2 (08:53→17:38)
[2021-04-06] MEDS: HYDROCHLOROTHIAZIDE 25 MG TABLET PO SCH (08:53)
--- NOTE | 2021-04-06 08:58 | NUR ---
DEL Family Contact: DEL attempted to contact pt's daughter Ginna ([phone]) and her voicemail stated she is out of the country and to contact through email [email or web address]. SW sent daughter an email in regards to pt's discharge and where pt got accepted. This is the second attempt SW sent email.
[2021-04-06] MEDS: FLUTICASONE PROPIONATE 16 GM BOTTLE NS SCH (09:03)
--- NOTE | 2021-04-06 09:17 | NUR ---
Director Of Public Safety: DEL contacted case liner Paty ([phone]) and stated pt will be discharged today to [facility]. She has been aware of this.
--- NOTE | 2021-04-06 09:19 | NUR ---
SW Discharge Note: Patient will be discharged to [facility] located at [address] [place] [address]; ([phone]) via ambulance. Nellie myers from [facility] accepted pt and is welcoming pt today. Patients daughter Ginna ([phone]) is notified and geriatric case manager Paty ([phone]) notified. Pt appears to be alert and oriented x2 and is willing to go to the nursing facility. Pt denies visual/auditory hallucinations. Pt denies denies suicidal or homicidal ideation. Patient will continue to follow-up with (psychiatrist) Dr. Hernandez [address], [place] [address]; ([phone]). (public relations manager) Dr. Keita [address], [place] [address]; ([phone]). Pt presented with euthymic mood and congruent affect.
--- NOTE | 2021-04-06 09:20 | NUR ---
DEL Family Contact: DEL attempted to contact pt's daughter Ginna ([phone]) and her voicemail stated she is out of the country and to contact through email [email or web address]. SW sent daughter an email in regards to pt's discharge [facility]. Pt is agreeable with this. DEL notified Paty complex case manager as well.
--- NOTE | 2021-04-06 09:41 | NUR ---
SW Discharge Note: Patient will be discharged to [facility] located at [address] [place] [address]; ([phone]) via ambulance. Nellie myers from [facility] accepted pt and is welcoming pt today. Patients daughter Ginna ([phone]) is notified and case folder Paty ([phone]) is aware. Pt appears to be alert and oriented x2 and is willing to go to the nursing facility. Pt denies visual/auditory hallucinations. Pt denies denies suicidal or homicidal ideation. Patient will continue to follow-up with (psychiatrist) Dr. Hernandez [address], [place] [address]; ([phone]). (pulp grinder and blender) Dr. Keita [address], [place] [address]; ([phone]). Pt presented with euthymic mood and congruent affect.
--- NOTE | 2021-04-06 10:06 | NUR ---
Hot Dip Tinning Supervisor: SW contacted supportive employment case manager Paty ([phone]) stated that daughter Ginna has been agreeing with the plan to go to [facility].
[2021-04-06] MEDS: TRAMADOL HCL 50 MG TABLET PO PRN (10:37)
[2021-04-06 16:00] VITALS: BP 120/69
--- NOTE | 2021-04-06 18:20 | NUR ---
Patient discharged to [facility] in stable condition.Compliant with medications ,cooperative with treatment plans Patient denies SI/HI/AVH .Behavior improved ,psychiatric tx plans met ,medical tx plans differed for for continual monitoring .Educated pt about after care plan (Exit -care)and copy provided .Returned personal belongings to patient med list given and explained to patient able to verbalize understanding, report given to Viviana BETTENCOURT in facility .Vs stable ,no c/o pain .Patient seen by and with discharge orders and prescriptions .Patient discharge at 1820 with ambulance. Addendum: 04/06/21 at 1842 by LUIS KERNS discharged to [facility].
== END 2021-04-06 18:20 | DRG 885 ==
LOC: ER 17:29 → GPS 21:05
PROVIDERS: ADMIT Psychiatry & Neurology Psychosomatic Medicine; ATTEND Internal Medicine
DX: F25.0 Schizoaffective disorder, bipolar type (principal); M32.9 Systemic lupus erythematosus, unspecified; E87.1 Hypo-osmolality and hyponatremia; F29 Unspecified psychosis not due to a substance or known physiological condition; F17.200 Nicotine dependence, unspecified, uncomplicated; I10 Essential (primary) hypertension; E87.6 Hypokalemia; F41.9 Anxiety disorder, unspecified; Z88.8 Allergy status to other drugs, medicaments and biological substances; Z73.6 Limitation of activities due to disability; G89.29 Other chronic pain; M20.40 Other hammer toe(s) (acquired), unspecified foot; L97.509 Non-pressure chronic ulcer of other part of unspecified foot with unspecified severity; F39 Unspecified mood [affective] disorder
CPT/HCPCS: 36415; 80048-TC; 80076-TC; 82565-TC; 82962-TC; 84443-TC; 85025-TC; 87081-TC; 94799-TC; 97116-TC; 97530-TC; C9803; G0480; Q0162

== ENCOUNTER 2021-08-28 10:10 | Inpatient (IN) | payer MEDICARE, OTHER ==
[~2021-08-28] VITALS: Ht 167.6 cm; Wt 62.6 kg
[~2021-08-28 10:10] MED LIST: AMLO-212 PO; ARIP15TA3 PO; CALC-1143 PO; CHOL200013 PO; DICY10CA13 PO; FLUT16SP16; GUAI600T53 PO; LOSA1TAB9 PO; MIRT-91 PO; MONT10TA22 PO; ONDA4TAB5 PO; PANT40TA49 PO; TIOT18CA3 INH; TRAM50TA2 PO; VENL75TA4 PO
--- NOTE | 2021-08-28 10:10 | NUR ---
PT NAZ FROM [facility] C/O FAILURE TO THRIVE. "SHE REFUSING TO EAT AND NOT TAKING HER MEDS." PT IS AAOX2, NOT IN RESPIRATORY DISTRESS, V/S STABLE, KEPT RESTED AND COMFORTABLE. WILL CONTINUE TO MONITOR.
--- NOTE | 2021-08-28 10:20 | NUR ---
AT BEDSIDE FOR EVAL.
[2021-08-28] MEDS ORDERED: IV NS 0.9% 1,000 ML BAG IV ONE (10:30)
[2021-08-28] MEDS ORDERED: CHOL100043 PO (10:39)
[2021-08-28] MEDS ORDERED: LOSA50TA39 PO (10:39)
[2021-08-28] MEDS ORDERED: ARIP2TAB19 PO (10:39)
[2021-08-28] MEDS ORDERED: CALC1TAB30 PO (10:39)
[2021-08-28] MEDS ORDERED: HYDR12.55 PO (10:40)
[2021-08-28] MEDS ORDERED: ARIP5TAB10 PO (10:40)
[2021-08-28] MEDS ORDERED: DIVA125C5 PO (10:40)
[2021-08-28] MEDS ORDERED: MULT-447 PO (10:40)
[2021-08-28] MEDS ORDERED: ACET-868 PO (10:40)
[2021-08-28] MEDS ORDERED: ARIP20TA4 PO (10:40)
[2021-08-28] MEDS ORDERED: LIDO30AD10 TP (10:40)
--- NOTE | 2021-08-28 10:55 | NUR ---
UNABLE TO PROVIDE URINE AT THIS TIME
[2021-08-28 11:07] LABS: CALCIUM, SERUM 9.6 mg/dL (8.5-10.1); CARBON DIOXIDE 28 mmol/L (21-32); CHLORIDE 96 mmol/L (98-107); CREATININE 0.7 mg/dL (0.6-1.3); GLUCOSE 92 mg/dL (74-106); POTASSIUM 3.5 mmol/L (3.5-5.1); SODIUM SERUM 132 mmol/L (136-145); UREA NITROGEN, BLOOD 13 mg/dL (7-18)
[2021-08-28 11:13] LABS: ALANINE AMINOTRANSFERASE 24 U/L (12-78); ALBUMIN 3.9 g/dL (3.4-5.0); ALKALINE PHOSPHATASE 90 U/L (46-116); ASPARTATE AMINOTRANSFERASE 14 U/L (15-37); BILIRUBIN,DIRECT 0.2 mg/dL (0.0-0.2); BILIRUBIN,TOTAL 0.6 mg/dL (0.2-1.0); TOTAL PROTEIN, SERUM 8.9 g/dL (6.4-8.2)
[2021-08-28 11:15] LABS: ACETAMINOPHEN 0 ug/ml (10-30)
[2021-08-28 11:23] LABS: ALCOHOL, BLOOD < 3 mg/dL (0-0)
[2021-08-28 11:27] LABS: BASOPHILS % (AUTO) 0.3 % (0.0-2.0); EOSINOPHILS % (AUTO) 0.4 % (0.0-6.0); HEMATOCRIT 43 % (33-45); HEMOGLOBIN 14.5 g/dL (11.5-14.8); LYMPHOCYTES # (AUTO) 0.8 K/uL (0.8-4.8); LYMPHOCYTES % (AUTO) 15.3 % (20.0-44.0); MEAN CORPUSCULAR HGB CONC 34 g/dl (31.0-36.0); MEAN CORPUSCULAR VOLUME 88 fL (82-100); MONOCYTES # (AUTO) 0.5 K/uL (0.1-1.30); MONOCYTES % (AUTO) 8.2 % (2.0-12.0); NEUTROPHILS # (AUTO) 4.2 K/uL (1.8-8.9); NEUTROPHILS % (AUTO) 75.8 % (43.0-81.0); PLATELET COUNT (AUTO) 238 K/uL (150-450); RED BLOOD CELL COUNT(AUTO) 4.93 MIL/uL (4.0-5.2); WHITE BLOOD COUNT (AUTO) 5.5 K/uL (4.3-11.0)
--- NOTE | 2021-08-28 11:27 | NUR ---
EKG DONE AT BEDSIDE
--- NOTE | 2021-08-28 11:59 | NUR ---
CALLED [facility] [phone] WILL COME AFTER FINISHING UP AT [facility].
--- NOTE | 2021-08-28 13:00 | NUR ---
PATIENT REFUSED TO GIVE URINE SAMPLE. SHE WAS UPSET AND DOESN'T WANT TO TALK TO ME. TOLD NURSE THAT SHE WANTS ANOTHER NURSE.
--- NOTE | 2021-08-28 13:45 | NUR ---
JAQUELIN HALL TRIED TO ENCOURAGE PATIENT TO GIVE URINE SAMPLE. PATIENT GOT UPSET AND ASKED HER TO LEAVE
--- NOTE | 2021-08-28 15:15 | NUR ---
APPROACHED PATIENT AGAIN FOR URINE SAMPLE;STILL REFUSING
--- NOTE | 2021-08-28 16:00 | NUR ---
GOT BED 211
--- NOTE | 2021-08-28 16:04 | NUR ---
COVID SWAB DONE
--- NOTE | 2021-08-28 17:25 | NUR ---
REPORT GIVEN TO SG MELISSA IN RM 211
--- NOTE | 2021-08-28 17:50 | NUR ---
IV CANNULA REMOVED. BEDBATH GIVEN TO PATIENT.
--- NOTE | 2021-08-28 18:01 | NUR ---
TRANSFERRED PATIENT TO 211 VIA STRETCHER
--- NOTE | 2021-08-28 18:24 | NUR ---
RN-CO: PATIENT REFUSED TO SIGN ADMISSION PAPERS , VITAL SIGNS AND SKIN ASSESSMENT. DR BURNS WAS CALLED AND GAVE ADMITTING ORDERS.
[2021-08-28] MEDS ORDERED: TEMAZEPAM 7.5 MG CAPSULE PO PRN (18:30)
[2021-08-28] MEDS ORDERED: LORAZEPAM 0.5 MG TABLET PO PRN (18:30)
[2021-08-28] MEDS ORDERED: BLOOD SUGAR DIAGNOSTIC 1 EACH STRIP IN ONE (18:30)
[2021-08-28] MEDS ORDERED: MAGNESIUM HYDROXIDE 30 ML UDC PO PRN (18:30)
[2021-08-28] MEDS ORDERED: MAG HYDROX/AL HYDROX/SIMETH 30 ML UDC PO PRN (18:30)
--- NOTE | 2021-08-28 19:05 | NUR ---
GPS RN APPEALS NOTES: ADMITTED A 75-Y/O, FROM [facility]. PATIENT IS ON A 72-HR HOLD FOR GD. PER HOLD, PT BIB AMBULANCE DUE TO NOT EATING, TAKING HER MEDICATIONS NOR DRINKING. PATIENT IS CONFUSED, DISORGANIZED AND DISORIENTED. UPON FACE TO FACE ASSESSMENT, PATIENT IS CONFUSED, UNCOOPERATIVE TO CARE, LABILE AND DISORGANIZED. PATIENT REFUSED TO SIGN ALL ADMISSION PAPERWORK. PATIENT REFUSED SKIN ASSESSMENT. BELONGINGS WERE INVENTORIED AND CHECKED FOR CONTRABAND. PATIENT RIGHTS WERE DISCUSSED, BOOKLET WAS GIVEN AND A GUIDE TO PRESCRIPTION MEDICATIONS PROVIDED. OFFERED PNEUMONIA VACCINE BUT PT REFUSED. PATIENT IS UNDER THE PSYCHIATRIC CARE OF DR. BURNS AND MEDICAL CARE OF DR. BENAVIDES. BED IN LOW LOCKED POSITION. SAFETY PRECAUTIONS MAINTAINED. WILL CONTINUE TO MONITOR Q15 MINS FOR MOOD, SAFETY AND BEHAVIOR.
[2021-08-28 20:00] VITALS: BP 138/95
[2021-08-28] MEDS ORDERED: ACETAMINOPHEN 325 MG TABLET PO PRN (20:30)
[2021-08-28 20:48] VITALS: BP 138/95
[2021-08-28] MEDS: risperiDONE 1 MG TABLET PO SCH (23:00)
--- NOTE | 2021-08-28 23:28 | NUR ---
GPS RN NOTES: MEDICATION REFUSAL PATIENT REFUSED SCHEDULED RISPERDAL AT 2300. DESPITE OF EDUCATION PROVIDED REGARDING MEDICATION COMPLIANCE. OFFERED X3, PATIENT CONTINUED TO REFUSE. PATIENT STATES, "NO, I DON'T TAKE ANY MEDICATION". WILL CONTINUE TO MONITOR.
--- NOTE | 2021-08-29 06:39 | NUR ---
GPS RN NOTES LEFT VOICE MESSAGE TO PATIENCE WALDROP ([phone]) REGARDING PT'S ADMISSION. WILL ENDORSE TO DAY SHIFT NURSE FOR CONTINUITY OF CARE.
--- NOTE | 2021-08-29 06:46 | NUR ---
GPS RN NOTES UNABLE TO COLLECT URINE SPECIMEN PATIENT REFUSED. PATIENT IS UNCOOPERATIVE AND PARANOID AT THIS TIME.
[2021-08-29] MEDS: PANTOPRAZOLE 40 MG TABLET.DR PO SCH ×2 (07:46→16:34)
--- NOTE | 2021-08-29 07:54 | NUR ---
RECEIVED PT AWAKE, ABLE TO COMMUNICATE AND MAKE NEEDS KNOWN, DID NOT EAT ANY OF BREAKFAST, HAD TO CRUSH MEDICATION AND HIDE IN CHOCOLATE PROTEIN SHAKE, REFUSED TO TAKE MEDICATION WHOLE EDUCATED PURPOSE AND REASON, ENCOURAGED TO EAT AND DRINK BREAKFAST REFUSED, OFFERED WATER , APPLE JUICE, COFFEE WELL, REFUSED, TRYING TO ESTABLISH TRUST AND PROVIDING REASSURANCE AND CARE NEEDED IN ORDER TO HELP PT BE COMPLIANT AND COOPERATIVE, WILL CONTINUE TO MONITOR PT AT THIS TIME.
[2021-08-29 08:00] VITALS: BP 124/95
[2021-08-29 08:16] LABS: ALBUMIN 3.7 g/dL (3.4-5.0); BILIRUBIN,TOTAL 0.6 mg/dL (0.2-1.0); CALCIUM, SERUM 9.4 mg/dL (8.5-10.1); CREATININE 0.6 mg/dL (0.6-1.3); POTASSIUM 3.5 mmol/L (3.5-5.1); TOTAL PROTEIN, SERUM 8.5 g/dL (6.4-8.2)
[2021-08-29 08:52] LABS: CHOLESTEROL 120 mg/dL (<200); HDL CHOLESTEROL 66 mg/dL (40-60); LDL 41 mg/dL (0-99); TRIGLYCERIDES 60 mg/dL (30-150)
[2021-08-29] MEDS: MULTIVITAMINS,THERAGRAN 1 UDTAB TABLET PO SCH (09:00)
[2021-08-29] MEDS: LOSARTAN POTASSIUM 50 MG TABLET PO SCH (09:00)
[2021-08-29] MEDS: LIDOCAINE 5% (PATCH) 1 EA PATCH TP SCH (09:00)
[2021-08-29] MEDS: DIVALPROEX SODIUM 125 MG CAP.SPRINK PO SCH ×3 (09:00→17:12)
[2021-08-29] MEDS: CALCIUM CARB 600MG /VIT D 1 EACH TABLET PO SCH (09:00)
[2021-08-29] MEDS: AMLODIPINE BESYLATE 5 MG TABLET PO SCH (09:00)
[2021-08-29] MEDS: FLUTICASONE PROPIONATE 16 GM BOTTLE NS SCH (09:27)
[2021-08-29] MEDS: HYDROCHLOROTHIAZIDE 25 MG TABLET PO SCH (09:28)
[2021-08-29] MEDS: MONTELUKAST SODIUM (10MG) 10 MG TABLET PO SCH (09:29)
--- NOTE | 2021-08-29 09:48 | NUR ---
DEL Initial Discharge: Pt currently resides at [facility] located at [address] [place] [address]; ([phone]). Pt would want to return back upon dc. DEL will work with the treatment team and family to help coordinate appropriate dc.
--- NOTE | 2021-08-29 09:48 | NUR ---
SW Admit Source: Pt placed on a 5150 hold for GD. Pt currently resides at [facility] located at [address] [place] [address]; ([phone]) and was uncooperative at her residence. Pt was non compliant with medications and was not eating. Pt would want to return back upon dc.
--- NOTE | 2021-08-29 10:58 | NUR ---
SW Contact: DEL contacted [facility] ([phone]) to see if pt is welcomed back upon dc. DEL spoke with Refugio myers ([phone]) who stated pt is welcomed back upon dc.
[2021-08-29] MEDS: risperiDONE 1 MG TABLET PO SCH ×2 (11:00→23:00)
--- NOTE | 2021-08-29 11:07 | NUR ---
SW Contact: SW contacted pt's piano case maker Paty ([phone]) and notified of pt's admission. Paty stated daughter lives in [place] and is involved in pt's care and she will contact the daughter through Email. Daughter wants pt back to [facility].
[2021-08-29 16:00] VITALS: BP 109/73
--- NOTE | 2021-08-29 16:35 | NUR ---
PT REFUSING TO TAKE ALL MEDICATIONS UNLESS CRUSHED AND HIDDEN INSIDE FOOD AT THIS TIME, EDUCATED REASONING AND CONSEQUENCS IF NOT TAKING THE MEDICATIONS, WILL CAREFULLY OBSERVE BEHAVIOR, ENCOURAGED HYDRATION , DRANK 3 CRANBERRY JUICES AND WATER, CALL BED LOW TO FLOOR, WHEELS LOCKED SAFETY MEASURES IN PLACE
[2021-08-29 19:45] VITALS: BP 122/68
--- NOTE | 2021-08-30 05:11 | NUR ---
RN GPS NOTE: PATIENT WAS ENCOURAGED TO TAKE HER BED TIME MEDICATIONS THIS SHIFT. 1ST ATTEMPT, PATIENT REFUSED BUT STATED SHE MAY TAKE IT LATER. CAME INTO PATIENT'S ROOM 30 MINUTES LATER AND PATIENT REFUSED AGAIN. ATTEMPTED TO EDUCATE AND ENCOURAGE PATIENT TO TAKE, BUT STILL REFUSED.
[2021-08-30] MEDS: PANTOPRAZOLE 40 MG TABLET.DR PO SCH ×2 (07:30→16:30)
[2021-08-30 08:00] VITALS: BP 120/59
[2021-08-30] MEDS: CALCIUM CARB 600MG /VIT D 1 EACH TABLET PO SCH (08:24)
[2021-08-30] MEDS: LOSARTAN POTASSIUM 50 MG TABLET PO SCH (08:24)
[2021-08-30] MEDS: MULTIVITAMINS,THERAGRAN 1 UDTAB TABLET PO SCH (08:24)
[2021-08-30] MEDS: FLUTICASONE PROPIONATE 16 GM BOTTLE NS SCH (08:25)
[2021-08-30] MEDS: DIVALPROEX SODIUM 125 MG CAP.SPRINK PO SCH ×3 (08:26→16:34)
[2021-08-30] MEDS: HYDROCHLOROTHIAZIDE 25 MG TABLET PO SCH (08:26)
[2021-08-30] MEDS: AMLODIPINE BESYLATE 5 MG TABLET PO SCH (08:26)
[2021-08-30] MEDS: MONTELUKAST SODIUM (10MG) 10 MG TABLET PO SCH (08:27)
[2021-08-30] MEDS: LIDOCAINE 5% (PATCH) 1 EA PATCH TP SCH (08:27)
--- NOTE | 2021-08-30 09:55 | NUR ---
RN-CO:PATIENT REFUSED ALL HER MORNING MEDICATIONS. MUMBLES, SEEING THINGS THAT ARE NOT THERE, TALKING TO HERSELF. SHE IS SUSPICIOUS ABOUT MEDICATIONS. SHE IS ISOLATIVE AND EASILY IRRITATED. I WILL CONTINUE TO MONIOTR AND NOTIFY .
[2021-08-30] MEDS: risperiDONE 1 MG TABLET PO SCH ×2 (11:00→23:00)
--- NOTE | 2021-08-30 12:26 | NUR ---
RN-CO: PATIENT REFUSED ALL HER MEDICATINS, DR DING MADE AWARE.
[2021-08-30 16:00] VITALS: BP 142/69
--- NOTE | 2021-08-30 19:54 | NUR ---
GPS RN OPENING NOTES: RECEIVED PATIENT IN ROOM, AWAKE, A/O X2. BLUNTED AFFECT, SUSPICIOUS, PARANOID, DISORGANIZED, UNCOOPERATIVE, ASKING STAFF TO "GET OUT OF HERE", REFUSED V/S. NO S/S OF DISTRESS. RESPIRATION EVEN AND UNLABORED WITH EQUAL RISE AND FALL OF THE CHEST, ON ROOM AIR. OFFERED FLUID AND SNACKS TOLERATED. BED IN LOW LOCKED POSITION, CALL SHAFFER WITHIN REACH. WILL CONTINUE TO MONITOR Q15 FOR MOOD, SAFETY AND BEHAVIOR.
[2021-08-30 20:00] VITALS: BP 117/79
[2021-08-30] MEDS: MUPIROCIN OINT 2% 22 GM TUBE NS SCH (21:00)
--- NOTE | 2021-08-30 22:00 | NUR ---
GPS RN NOTES: PATIENT REFUSED NURSE TO APPLY BACTROBAN TO BOTH NARES TO TREAT MRSA. PATIENT IS HOSTILE AND ASKED TO LEAVE THE ROOM.
--- NOTE | 2021-08-31 00:09 | NUR ---
GPS RN NOTES: PATIENT REFUSED 2300 RISPERIDONE 0.5MG PO.
--- NOTE | 2021-08-31 07:02 | NUR ---
GPS RN CLOSING NOTES: PATIENT IS LAYING IN BED AWAKE, A/O X1-2. PATIENT SLEPT 5HR THIS SHIFT. NO S/S OF DISTRESS NOTED. RESPIRATION EVEN AND UNLABORED WITH EQUAL RISE AND FALL OF THE CHEST, ON ROOM AIR. ALL PATIENT CARE NEEDS HAVE BEEN MET ANTICIPATED. BED IN LOW LOCKED POSITION, SIDE RAILS UP X2 FOR SAFETY. CALL SHAFFER WITHIN REACH. WILL CONTINUE TO MONITOR AND ENDORSE TO AM SHIFT.
[2021-08-31] MEDS: PANTOPRAZOLE 40 MG TABLET.DR PO SCH ×2 (07:30→16:14)
[2021-08-31 08:00] VITALS: BP 126/87
[2021-08-31] MEDS: LIDOCAINE 5% (PATCH) 1 EA PATCH TP SCH (08:48)
[2021-08-31] MEDS: FLUTICASONE PROPIONATE 16 GM BOTTLE NS SCH (08:48)
[2021-08-31] MEDS: CALCIUM CARB 600MG /VIT D 1 EACH TABLET PO SCH (08:48)
[2021-08-31] MEDS: LOSARTAN POTASSIUM 50 MG TABLET PO SCH (08:48)
[2021-08-31] MEDS: MUPIROCIN OINT 2% 22 GM TUBE NS SCH ×2 (08:48→21:00)
[2021-08-31] MEDS: HYDROCHLOROTHIAZIDE 25 MG TABLET PO SCH (08:49)
[2021-08-31] MEDS: DIVALPROEX SODIUM 125 MG CAP.SPRINK PO SCH ×3 (08:49→16:14)
[2021-08-31] MEDS: AMLODIPINE BESYLATE 5 MG TABLET PO SCH (08:50)
[2021-08-31] MEDS: MONTELUKAST SODIUM (10MG) 10 MG TABLET PO SCH (08:50)
[2021-08-31] MEDS: MULTIVITAMINS,THERAGRAN 1 UDTAB TABLET PO SCH (08:51)
--- NOTE | 2021-08-31 09:12 | NUR ---
RN-CO: PATIENT REFUSED ALL HER MEDICATIONS EXCEPT THE LIDOCAINE PATCH. DR GLEZ MADE AWARE. CALLED DR DAILY TO MAKE THE H&P. PT IS TALKING TO UNSEEN OTHERS, PARANOID, AND EASILY IRRITATED.
--- NOTE | 2021-08-31 09:18 | NUR ---
RN-CO: MAMIE PETITION FILED TODAY BY DR GLEZ.
--- NOTE | 2021-08-31 10:15 | NUR ---
DEL Family Contact: DEL received a call from patient's daughter Ginna who lives in [facility] and contacted this consumer loan underwriter with unknown number. SW discussed treatment plan and discharge plan. SW explained patient's current status. Daughter is agreeable of pt going to a SNF and then going to [facility].
[2021-08-31] MEDS: risperiDONE 1 MG TABLET PO SCH ×2 (11:00→23:00)
--- NOTE | 2021-08-31 14:12 | NUR ---
RN-CO: PATIENT DENIED PAIN AND DISCOMFORTS. REFUSED ALL HER MEDICATIONS EXCEPT LIDOCAINE PATCH. TALKING TO SELF AND UNSEEN OTHERS. PARANOID, SHE BELIEVES SHE DOES NOT NEED HER MEDICATIONS. DR GLEZ FILED RIESED PETITION.
--- NOTE | 2021-08-31 15:23 | NUR ---
Individual Counseling: SW met with pt. at bedside. Pt. was responding to internal stimuli. Pt. was easily redirected and able to engage in meaningful conversation at this time. SW engaged pt. in discussion acknowledging good things. Pt. stated one thing she worked hard to achieve was her career. 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 SW validated patient, used active listening. Patient remained calm & cooperative thought session.
[2021-08-31 16:00] VITALS: BP 140/71
--- NOTE | 2021-08-31 19:05 | NUR ---
GPS RN NOTES: DR. GLEZ NOTIFIED HEARING TOMORROW AT 3:30PM. JESSE FILED 08/31/21. Addendum: 08/31/21 at 1999 by SUSIE CALDWELL RN JESSE PETITION FILED TODAY BY DR. GLEZ. HEARING WILL BE SCHEDULED TOMORROW 09/01/21 AT 3:30PM. DR. GLEZ WAS NOTIFIED.
--- NOTE | 2021-08-31 19:54 | NUR ---
GPS RN OPENING NOTES: RECEIVED PATIENT SLEEPING IN BED, EASILY AROUSABLE, EASILY IRRITABLE, SUSPICIOUS, PARANOID, DISORGANIZED, UNCOOPERATIVE, HOSTILE. NO S/S OF DISTRESS. RESPIRATION EVEN AND UNLABORED WITH EQUAL RISE AND FALL OF THE CHEST, ON ROOM AIR. OFFERED FLUID AND SNACKS TOLERATED. BED IN LOW LOCKED POSITION, CALL SHAFFER WITHIN REACH. WILL CONTINUE TO MONITOR Q15 FOR MOOD, SAFETY AND BEHAVIOR.
[2021-08-31 20:00] VITALS: BP 128/89
--- NOTE | 2021-08-31 21:37 | NUR ---
GPS RN NOTES: PATIENT REFUSED NURSE TO APPLY BACTROBAN TO BOTH NARES. EDUCATION PROVIDED ON THE IMPORTANCE OF MEDICATION COMPLIANCE.
--- NOTE | 2021-08-31 23:09 | NUR ---
GPS RN NOTES: PATIENT REFUSED 2300 RISPERIDONE 0.5MG PO. PATIENT IS NOT COMPLIANT WITH TREATMENT REGIMEN
[2021-09-01] MEDS: PANTOPRAZOLE 40 MG TABLET.DR PO SCH ×2 (07:30→16:06)
[2021-09-01 08:00] VITALS: BP 150/90
[2021-09-01] MEDS: DIVALPROEX SODIUM 125 MG CAP.SPRINK PO SCH ×3 (08:01→16:06)
[2021-09-01] MEDS: LOSARTAN POTASSIUM 50 MG TABLET PO SCH (08:01)
[2021-09-01] MEDS: MUPIROCIN OINT 2% 22 GM TUBE NS SCH ×2 (08:01→20:31)
[2021-09-01] MEDS: FLUTICASONE PROPIONATE 16 GM BOTTLE NS SCH (08:01)
[2021-09-01] MEDS: CALCIUM CARB 600MG /VIT D 1 EACH TABLET PO SCH (08:01)
[2021-09-01] MEDS: AMLODIPINE BESYLATE 5 MG TABLET PO SCH (08:02)
[2021-09-01] MEDS: MONTELUKAST SODIUM (10MG) 10 MG TABLET PO SCH (08:02)
[2021-09-01] MEDS: HYDROCHLOROTHIAZIDE 25 MG TABLET PO SCH (08:02)
[2021-09-01] MEDS: LIDOCAINE 5% (PATCH) 1 EA PATCH TP SCH (08:03)
[2021-09-01] MEDS: MULTIVITAMINS,THERAGRAN 1 UDTAB TABLET PO SCH (08:03)
--- NOTE | 2021-09-01 09:43 | NUR ---
RN NOTE PT REFUSED ALL AM MEDICATIONS STATING,"I DO NOT NEED THEM.". PT IS UNCOOPERATIVE,NON COMPLIANT WITH TREATMENT REGEMEN X 4 DAYS. WILL CONTINUE TO MONITOR.
[2021-09-01] MEDS: risperiDONE 1 MG TABLET PO SCH ×2 (11:00→22:11)
--- NOTE | 2021-09-01 11:19 | NUR ---
RN NOTE PT REFUSED RISPERIDONE AT 1100. PT STATED THAT SHE DOES NOT NEED MEDICATIONS. PT IS NON COMPLIANT WITH PLAN OF CARE. WILL CONTINUE TO MONITOR.
--- NOTE | 2021-09-01 11:33 | NUR ---
Court Hearing Notification: SW contacted pt's oil field caser Paty ([phone]) and notified of pt's [address] hearing.
--- NOTE | 2021-09-01 12:07 | NUR ---
RN NOTE PT REFUSED 1300 DIVALPROEX MED STATING THAT SHE DOES NOT NEED THEM. PT IS NON COMPLIANT WITH PLAN OF CARE. WILL CONTINUE TO MONITOR.
--- NOTE | 2021-09-01 14:13 | NUR ---
Court Hearing: Patient's court hearing for 4350 was today and it was upheld for GD.
[2021-09-01] MEDS ORDERED: OLANZAPINE 10 MG VIAL IM PRN (15:00)
[2021-09-01 16:00] VITALS: BP 125/89
--- NOTE | 2021-09-01 16:06 | NUR ---
RN NOTE PT REFUSED DIVALPROEX AND PANTOPRAZOLE AT 1700. PT IS NON COMPLIANT WITH TAKING MEDS AND PLAN OF CARE. WILL CONTINUE TO MONITOR.
[2021-09-01 20:00] VITALS: BP 134/96
--- NOTE | 2021-09-01 22:11 | NUR ---
RN NOTE PT. TOOK NIGHT SCHEDULE MEDS. WILL CONTINUE TO MONITOR.
--- NOTE | 2021-09-01 22:13 | NUR ---
RN NOTES: PATIENT RESTING IN BED, EASILY IRRITABLE, SUSPICIOUS, DISORGANIZED, COOPERATIVE WITH CARE AND COMPLIANT WITH NIGHT MEDS . NO S/S OF DISTRESS. SAFETY PRECAUTIONS IN PLACED , ENCOURAGED PT. TO VERBALIZED ANY FEELING OR CONCERN. WILL CONTINUE TO MONITOR Q15 FOR MOOD, SAFETY AND BEHAVIOR.
[2021-09-02] MEDS: PANTOPRAZOLE 40 MG TABLET.DR PO SCH ×2 (07:30→16:30)
[2021-09-02 08:00] VITALS: BP 125/75
[2021-09-02] MEDS: MULTIVITAMINS,THERAGRAN 1 UDTAB TABLET PO SCH (08:38)
[2021-09-02] MEDS: AMLODIPINE BESYLATE 5 MG TABLET PO SCH (08:39)
[2021-09-02] MEDS: LOSARTAN POTASSIUM 50 MG TABLET PO SCH (08:39)
[2021-09-02] MEDS: CALCIUM CARB 600MG /VIT D 1 EACH TABLET PO SCH (08:39)
[2021-09-02] MEDS: HYDROCHLOROTHIAZIDE 25 MG TABLET PO SCH (08:39)
[2021-09-02] MEDS: LIDOCAINE 5% (PATCH) 1 EA PATCH TP SCH (08:41)
[2021-09-02] MEDS: MONTELUKAST SODIUM (10MG) 10 MG TABLET PO SCH (08:42)
[2021-09-02] MEDS: DIVALPROEX SODIUM 125 MG CAP.SPRINK PO SCH ×3 (08:46→17:12)
[2021-09-02] MEDS: FLUTICASONE PROPIONATE 16 GM BOTTLE NS SCH (08:46)
[2021-09-02] MEDS: ACETAMINOPHEN 325 MG TABLET PO PRN (08:49)
[2021-09-02] MEDS: MUPIROCIN OINT 2% 22 GM TUBE NS SCH ×2 (08:51→20:55)
--- NOTE | 2021-09-02 10:00 | NUR ---
GPS/RN RECEIVED PATIENT RESTING IN BED, EASILY IRRITABLE, SUSPICIOUS, DISORGANIZED, SELECTIVE WITH DAILY MEDS . NO S/S OF DISTRESS NOTED. SAFETY PRECAUTIONS IN PLACE , ALL NEEDS ATTENDED AND ANTICIPATED. WILL CONTINUE TO MONITOR Q15 FOR MOOD, SAFETY AND BEHAVIOR.
[2021-09-02] MEDS: risperiDONE 1 MG TABLET PO SCH ×2 (11:29→22:18)
[2021-09-02 16:00] VITALS: BP 127/76
[2021-09-02 20:00] VITALS: BP 115/71
[2021-09-03] MEDS: PANTOPRAZOLE 40 MG TABLET.DR PO SCH ×2 (07:30→16:25)
[2021-09-03 08:00] VITALS: BP 127/76
[2021-09-03] MEDS: DIVALPROEX SODIUM 125 MG CAP.SPRINK PO SCH ×3 (08:05→16:26)
[2021-09-03] MEDS: LIDOCAINE 5% (PATCH) 1 EA PATCH TP SCH (08:05)
[2021-09-03] MEDS: ACETAMINOPHEN 325 MG TABLET PO PRN (08:12)
[2021-09-03] MEDS: MONTELUKAST SODIUM (10MG) 10 MG TABLET PO SCH (08:12)
[2021-09-03] MEDS: MUPIROCIN OINT 2% 22 GM TUBE NS SCH ×2 (08:19→20:49)
[2021-09-03] MEDS: CALCIUM CARB 600MG /VIT D 1 EACH TABLET PO SCH (08:20)
[2021-09-03] MEDS: LOSARTAN POTASSIUM 50 MG TABLET PO SCH (08:20)
[2021-09-03] MEDS: FLUTICASONE PROPIONATE 16 GM BOTTLE NS SCH (08:20)
[2021-09-03] MEDS: HYDROCHLOROTHIAZIDE 25 MG TABLET PO SCH (08:20)
[2021-09-03] MEDS: MULTIVITAMINS,THERAGRAN 1 UDTAB TABLET PO SCH (08:20)
[2021-09-03] MEDS: AMLODIPINE BESYLATE 5 MG TABLET PO SCH (08:20)
[2021-09-03] MEDS: risperiDONE 1 MG TABLET PO SCH ×2 (10:56→22:34)
--- NOTE | 2021-09-03 12:40 | NUR ---
GPS/RN PT REFUSED BLOOD DRAW OFFERED X3
[2021-09-03 16:00] VITALS: BP 117/77
[2021-09-03 20:06] VITALS: BP 134/83
--- NOTE | 2021-09-04 06:03 | NUR ---
RN NOTES: PATIENT RESTING IN BED, DISORGANIZED, COOPERATIVE WITH CARE AND COMPLIANT WITH NIGHT MEDS . NO S/S OF DISTRESS. SAFETY PRECAUTIONS IN PLACED , ENCOURAGED PT. TO VERBALIZED ANY FEELING OR CONCERN. WILL CONTINUE TO MONITOR Q15 FOR MOOD, SAFETY AND BEHAVIOR.
[2021-09-04] MEDS: PANTOPRAZOLE 40 MG TABLET.DR PO SCH ×2 (07:30→16:30)
[2021-09-04] MEDS: AMLODIPINE BESYLATE 5 MG TABLET PO SCH (08:34)
[2021-09-04] MEDS: HYDROCHLOROTHIAZIDE 25 MG TABLET PO SCH (08:34)
[2021-09-04] MEDS: FLUTICASONE PROPIONATE 16 GM BOTTLE NS SCH (08:34)
[2021-09-04] MEDS: CALCIUM CARB 600MG /VIT D 1 EACH TABLET PO SCH (08:34)
[2021-09-04] MEDS: LOSARTAN POTASSIUM 50 MG TABLET PO SCH (08:34)
[2021-09-04] MEDS: MULTIVITAMINS,THERAGRAN 1 UDTAB TABLET PO SCH (08:35)
[2021-09-04] MEDS: MONTELUKAST SODIUM (10MG) 10 MG TABLET PO SCH (08:35)
[2021-09-04] MEDS: DIVALPROEX SODIUM 125 MG CAP.SPRINK PO SCH ×3 (08:35→17:21)
[2021-09-04] MEDS: MUPIROCIN OINT 2% 22 GM TUBE NS SCH ×2 (08:36→21:30)
[2021-09-04] MEDS: LIDOCAINE 5% (PATCH) 1 EA PATCH TP SCH (08:55)
[2021-09-04] MEDS: risperiDONE 1 MG TABLET PO SCH ×2 (11:06→22:13)
--- NOTE | 2021-09-04 19:20 | NUR ---
GPS RN NOTES PATIENT IN BED AWAKE, ALERT AND ORIENTED X2. NO S/S OF ACUTE DISTRESS NOTED. PATIENT IS LABILE, UNCOOPERATIVE TO CARE, SUSPICIOUS, PARANOID AND ISOLATIVE. ENCOURAGED PATIENT TO ATTEND IN GROUP ACTIVITIES. SAFETY PRECAUTIONS IN PLACE. WILL CONTINUE TO MONITOR Q15MIN ROUNDS FOR SAFETY AND BEHAVIOR.
--- NOTE | 2021-09-04 20:11 | NUR ---
GPS RN NOTES PATIENT REFUSED WEEKLY SKIN BODY ASSESSMENT.
[2021-09-04 20:22] VITALS: BP 127/83
[2021-09-05 08:00] VITALS: BP 104/63
--- NOTE | 2021-09-05 08:24 | NUR ---
SNF Referral: DEL sent clinicals to George hale from [facility] ([phone]) for placement. DEL sent H & P, progress notes, and medication list.
[2021-09-05] MEDS: MULTIVITAMINS,THERAGRAN 1 UDTAB TABLET PO SCH (08:35)
[2021-09-05] MEDS: PANTOPRAZOLE 40 MG TABLET.DR PO SCH ×2 (08:35→16:12)
[2021-09-05] MEDS: LIDOCAINE 5% (PATCH) 1 EA PATCH TP SCH (08:35)
[2021-09-05] MEDS: DIVALPROEX SODIUM 125 MG CAP.SPRINK PO SCH ×3 (08:35→16:12)
[2021-09-05] MEDS: MONTELUKAST SODIUM (10MG) 10 MG TABLET PO SCH (08:36)
[2021-09-05] MEDS: HYDROCHLOROTHIAZIDE 25 MG TABLET PO SCH (08:36)
[2021-09-05] MEDS: CALCIUM CARB 600MG /VIT D 1 EACH TABLET PO SCH (08:36)
[2021-09-05] MEDS: LOSARTAN POTASSIUM 50 MG TABLET PO SCH (08:37)
[2021-09-05] MEDS: AMLODIPINE BESYLATE 5 MG TABLET PO SCH (08:37)
[2021-09-05] MEDS: MUPIROCIN OINT 2% 22 GM TUBE NS SCH ×2 (08:44→21:24)
[2021-09-05] MEDS: FLUTICASONE PROPIONATE 16 GM BOTTLE NS SCH (08:44)
[2021-09-05] MEDS: risperiDONE 1 MG TABLET PO SCH ×2 (10:53→21:24)
[2021-09-05 16:00] VITALS: BP 146/94
--- NOTE | 2021-09-05 16:20 | NUR ---
Individual Counseling: SW met with pt. at bedside. the pt. is alert & oriented x2 and makes good eye contact. The pt. remained calm & cooperative throughout conversation. Pt. is fixated on room being cold. SW notified patient's nurse about room temperature. Patient's thought process is WNL.Pt. was receptive to speaking with SW. SW encouraged peer interaction. Pt. stated "I will see".
[2021-09-05 20:30] VITALS: BP 106/54
[2021-09-05] MEDS: ACETAMINOPHEN 325 MG TABLET PO PRN (21:24)
[2021-09-06 08:00] VITALS: BP 136/80
[2021-09-06] MEDS: LOSARTAN POTASSIUM 50 MG TABLET PO SCH ×2 (09:00→09:31)
[2021-09-06] MEDS: LIDOCAINE 5% (PATCH) 1 EA PATCH TP SCH (09:28)
[2021-09-06] MEDS: DIVALPROEX SODIUM 125 MG CAP.SPRINK PO SCH ×4 (09:30→18:07)
[2021-09-06] MEDS: CALCIUM CARB 600MG /VIT D 1 EACH TABLET PO SCH (09:30)
[2021-09-06] MEDS: risperiDONE 1 MG TABLET PO SCH ×2 (09:30→20:08)
[2021-09-06] MEDS: MULTIVITAMINS,THERAGRAN 1 UDTAB TABLET PO SCH (09:31)
[2021-09-06] MEDS: PANTOPRAZOLE 40 MG TABLET.DR PO SCH ×2 (09:31→18:06)
[2021-09-06] MEDS: AMLODIPINE BESYLATE 5 MG TABLET PO SCH (09:32)
[2021-09-06] MEDS: HYDROCHLOROTHIAZIDE 25 MG TABLET PO SCH (09:32)
[2021-09-06] MEDS: MONTELUKAST SODIUM (10MG) 10 MG TABLET PO SCH (09:32)
[2021-09-06] MEDS: MUPIROCIN OINT 2% 22 GM TUBE NS SCH (09:34)
[2021-09-06] MEDS: FLUTICASONE PROPIONATE 16 GM BOTTLE NS SCH (09:35)
--- NOTE | 2021-09-06 12:49 | NUR ---
SNF Contact: SW spoke with George hale from [facility] ([phone]) and stated they are unable to accept pt because of behavioral issues.
--- NOTE | 2021-09-06 13:11 | NUR ---
SNF Referral: SW sent clinicals to [facility] ([phone]) for placement option, SW sent to Justin hale for review. SW sent H & P, progress notes, and medication list.
--- NOTE | 2021-09-06 14:07 | NUR ---
SNF Contact: SW received a call from [facility] ([phone]) Justin hale who stated that they cannot accept pt because they do not have any female beds available.
[2021-09-06 16:00] VITALS: BP 140/61
--- NOTE | 2021-09-06 16:00 | NUR ---
SNF Contact: SW spoke with Sophie hale from [facility] ([phone]) who stated that they cannot accept pt due to not have SNF days.
--- NOTE | 2021-09-06 16:00 | NUR ---
SNF Referral: DEL sent clinicals to Sophie hale from [facility] ([phone]) for placement option. SW sent H & P, progress notes, and medication list.
--- NOTE | 2021-09-06 16:01 | NUR ---
SNF Referral: DEL sent clinicals to Janett Paredes from [facility] ([phone]) for placement. DEL sent H & P, progress notes, and medication list.
--- NOTE | 2021-09-06 16:42 | NUR ---
MED COMPLIANT,BUT A LITTLE RELUCTANT INITIALLY IN AM.QUIET.
--- NOTE | 2021-09-06 18:38 | NUR ---
REFUSED KADI. CHELLYTE
--- NOTE | 2021-09-06 19:30 | NUR ---
GPS RN OPENING NOTES: RECEIVED PATIENT LAYING ON BED, AWAKE, A/O X2, LABILE, GUARDED, SUSPICIOUS, PARANOID, DISORGANIZED. NO S/S OF DISTRESS. RESPIRATION EVEN AND UNLABORED WITH EQUAL RISE AND FALL OF THE CHEST, ON ROOM AIR. OFFERED FLUID AND SNACKS TOLERATED. BED IN LOW LOCKED POSITION, SIDE RAILS UP X2 FOR SAFETY. CALL SHAFFER WITHIN REACH. WILL CONTINUE TO MONITOR Q15 FOR MOOD, SAFETY AND BEHAVIOR.
--- NOTE | 2021-09-06 21:19 | NUR ---
GPS RN NOTES: PATIENT IS COMPLIANT WITH PO MEDICATION THIS SHIFT BUT REFUSED V/S.
--- NOTE | 2021-09-07 07:02 | NUR ---
GPS RN CLOSING NOTES: PATIENT IS LAYING IN BED AWAKE, A/O X1-2. PATIENT SLEPT 7HR THIS SHIFT. PO MED COMPLIANT THIS SHIFT. NO S/S OF DISTRESS NOTED. RESPIRATION EVEN AND UNLABORED WITH EQUAL RISE AND FALL OF THE CHEST, ON ROOM AIR. ALL PATIENT CARE NEEDS HAVE BEEN MET ANTICIPATED. BED IN LOW LOCKED POSITION, SIDE RAILS UP X2 FOR SAFETY. CALL SHAFFER WITHIN REACH. WILL CONTINUE TO MONITOR AND ENDORSE TO AM SHIFT.
[2021-09-07 08:00] VITALS: BP 120/65
[2021-09-07] MEDS: LOSARTAN POTASSIUM 50 MG TABLET PO SCH (09:00)
[2021-09-07] MEDS: AMLODIPINE BESYLATE 5 MG TABLET PO SCH (10:04)
[2021-09-07] MEDS: PANTOPRAZOLE 40 MG TABLET.DR PO SCH ×2 (10:04→17:23)
[2021-09-07] MEDS: MULTIVITAMINS,THERAGRAN 1 UDTAB TABLET PO SCH (10:04)
[2021-09-07] MEDS: DIVALPROEX SODIUM 125 MG CAP.SPRINK PO SCH ×3 (10:04→17:23)
[2021-09-07] MEDS: MONTELUKAST SODIUM (10MG) 10 MG TABLET PO SCH (10:04)
[2021-09-07] MEDS: FLUTICASONE PROPIONATE 16 GM BOTTLE NS SCH (10:04)
[2021-09-07] MEDS: HYDROCHLOROTHIAZIDE 25 MG TABLET PO SCH (10:05)
[2021-09-07] MEDS: risperiDONE 1 MG TABLET PO SCH ×2 (10:05→21:59)
[2021-09-07] MEDS: CALCIUM CARB 600MG /VIT D 1 EACH TABLET PO SCH (10:05)
[2021-09-07] MEDS: LIDOCAINE 5% (PATCH) 1 EA PATCH TP SCH (10:06)
--- NOTE | 2021-09-07 10:41 | NUR ---
SNF Contact: DEL spoke with Janett from [facility] ([phone]) denied pt due to behavioral issues.
[2021-09-07 16:00] VITALS: BP 128/80
--- NOTE | 2021-09-07 20:35 | NUR ---
GPS RN OPENING NOTES: RECEIVED PATIENT LAYING ON BED, AWAKE, A/O X2, PASSIVE, GUARDED, SUSPICIOUS, DISORGANIZED. NO S/S OF DISTRESS. RESPIRATION EVEN AND UNLABORED WITH EQUAL RISE AND FALL OF THE CHEST, ON ROOM AIR. OFFERED FLUID AND SNACKS TOLERATED. BED IN LOW LOCKED POSITION, SIDE RAILS UP X2 FOR SAFETY. CALL SHAFFER WITHIN REACH. WILL CONTINUE TO MONITOR Q15 FOR MOOD, SAFETY AND BEHAVIOR.
[2021-09-08] MEDS: PANTOPRAZOLE 40 MG TABLET.DR PO SCH ×2 (07:30→16:30)
[2021-09-08 08:00] VITALS: BP 137/77
[2021-09-08] MEDS: risperiDONE 1 MG TABLET PO SCH ×4 (08:00→21:49)
[2021-09-08] MEDS: FLUTICASONE PROPIONATE 16 GM BOTTLE NS SCH (08:34)
[2021-09-08] MEDS: CALCIUM CARB 600MG /VIT D 1 EACH TABLET PO SCH (08:34)
[2021-09-08] MEDS: LOSARTAN POTASSIUM 50 MG TABLET PO SCH (08:35)
[2021-09-08] MEDS: AMLODIPINE BESYLATE 5 MG TABLET PO SCH (08:35)
[2021-09-08] MEDS: HYDROCHLOROTHIAZIDE 25 MG TABLET PO SCH (08:35)
[2021-09-08] MEDS: DIVALPROEX SODIUM 125 MG CAP.SPRINK PO SCH ×3 (08:35→16:53)
[2021-09-08] MEDS: MONTELUKAST SODIUM (10MG) 10 MG TABLET PO SCH (08:36)
[2021-09-08] MEDS: LIDOCAINE 5% (PATCH) 1 EA PATCH TP SCH (08:36)
[2021-09-08] MEDS: MULTIVITAMINS,THERAGRAN 1 UDTAB TABLET PO SCH (08:36)
--- NOTE | 2021-09-08 09:34 | NUR ---
RN-NOTES PATIENT IS SELECTIVE WITH MEDICATIONS,REFUSED ALL 0900AM MEDICATIONS DESPITE EXPLANATIONS RISK AND BENEFITS. PATIENT IS ARGUMENTATIVE AND ANGRY STATED" I DON'T NEED YOUR MEDICATIONS,I JUST NEED THAT MEDICATION SO I DON'T GET THE SHOT,GO AWAY". OFFERED X3.
--- NOTE | 2021-09-08 09:45 | NUR ---
DEL Individual Counseling: DEL attempted to conduct therapy. Pt appeared suspicious and labile. Pt was unable to have a proper conversation due to her paranoia. She kept stating "I don't know who you are and I do not want to speak to you". SW unable to have meaningful conversation at this time with pt due to her paranoia.
--- NOTE | 2021-09-08 11:08 | NUR ---
SNF Referral: DEL sent clinicals to Jackson from [facility] ([phone]) for placement. SW sent H & P, progress notes, and medication list.
--- NOTE | 2021-09-08 11:09 | NUR ---
SNF Contact: SW received a call from Jackson from [facility] ([phone]) who stated pt is accepted.
--- NOTE | 2021-09-08 11:39 | NUR ---
DEL Family/Brace MakerTechnical Photographer: DEL contacted pt's onsite case manager Paty ([phone]) and notified that pt is accepted at [facility]. Pt's daughter called this investigative writer from [employer] and discussed about discharge planning.
--- NOTE | 2021-09-08 13:26 | NUR ---
DEL Family: SW received a call from pt's daughter Ginna who calls from [facility] unknown number. SW explained pt's current condition and stated that pt is accepted at [facility], she was agreeable of this.
--- NOTE | 2021-09-08 13:27 | NUR ---
RN-NOTES PATIENT REFUSED DEPAKOTE 250MG P.O OFFERED X3.
--- NOTE | 2021-09-08 13:27 | NUR ---
[facility]: SW contacted [facility] located at [address] [phone]; ([phone]) and left a detailed voicemail of pt's discharge plan.
--- NOTE | 2021-09-08 15:42 | NUR ---
RN-NOTES PATIENT LAYING ON BED, AWAKE, A/O X2, GUARDED,NO ACUTE DISTRESS NOTED. PATIENT NOTED WITH EASILY ANGRY AND IRRITABLE BEHAVIOR.REFUSED 1300 MEDICATION. ABLE TO AMBULATE IN THE BATHROOM USING WALKER. NEEDS MINIMAL ASSIST WITH ADL'S. ALL NEEDS ATTENDED AND ANTICIPATED.WILL CONT. MONITORING FOR SAFETY AND BEHAVIOR.
[2021-09-08 16:00] VITALS: BP 131/79
--- NOTE | 2021-09-08 18:20 | NUR ---
RN-NOTES NO URINE COLLECTED, PATIENT WAS REFUSED AND UNCOOPERATIVE. ENDORSE TO INCOMING NURSE.
--- NOTE | 2021-09-09 05:09 | NUR ---
RN - NOTES: ALERT / ORIENTED X3 TOOK HS RISPERADOL WITH ENCOURAGEMENT C/O HAVING A URINARY INFECTIO REQUISTED A URINE SAMPLE SHE HAS NOT GIVEN ME SAMPLE YET (URINE CUP AT THE BEDSIDE) ENJOYS CONVERSATION WITH THE NURSES AMBULATES TO THE BATHROOM STEADY ON HER LEGS USING THE WALKER RAIL PUT UP ON THE FOOT OF HER BED WELL THE 2 TOP RAILS d/t SHE SLEEPS NEAR THE EDGE OF TH BED .
[2021-09-09 08:00] VITALS: BP 137/76
[2021-09-09] MEDS: risperiDONE 1 MG TABLET PO SCH ×3 (09:30→20:23)
[2021-09-09] MEDS: MONTELUKAST SODIUM (10MG) 10 MG TABLET PO SCH (09:31)
[2021-09-09] MEDS: DIVALPROEX SODIUM 125 MG CAP.SPRINK PO SCH ×3 (09:31→16:37)
[2021-09-09] MEDS: CALCIUM CARB 600MG /VIT D 1 EACH TABLET PO SCH (09:31)
[2021-09-09] MEDS: LIDOCAINE 5% (PATCH) 1 EA PATCH TP SCH (09:31)
[2021-09-09] MEDS: MULTIVITAMINS,THERAGRAN 1 UDTAB TABLET PO SCH (09:31)
[2021-09-09] MEDS: PANTOPRAZOLE 40 MG TABLET.DR PO SCH ×2 (09:31→15:46)
[2021-09-09] MEDS: LOSARTAN POTASSIUM 50 MG TABLET PO SCH (09:32)
[2021-09-09] MEDS: FLUTICASONE PROPIONATE 16 GM BOTTLE NS SCH (09:33)
--- NOTE | 2021-09-09 13:15 | NUR ---
RN NOTE PT REFUSED 1300 RISPERIDONE 1MG. PER RIESE ORDER PT WAS GIVEN ZYPREXA 3MG IM INJECTION. PT WAS COOPERATIVE WITH RIESE ORDER. WILL CONTINUE TO MONITOR.
[2021-09-09] MEDS: ACETAMINOPHEN 325 MG TABLET PO PRN (13:19)
[2021-09-09 16:00] VITALS: BP 107/71
--- NOTE | 2021-09-09 18:30 | NUR ---
RN NOTE PT REFUSED TO GIVE URINE SPECIMEN FOR UA. INFORMED PT OF IMPORTANCE AND PT STILL WAS NOT COMPLIANT.
--- NOTE | 2021-09-09 19:53 | NUR ---
RN-NOTES PATIENT RESTING IN BED, AWAKE, GUARDED, PARANOID NO ACUTE DISTRESS NOTED. PATIENT NOTED WITH EASILY ANGRY AND IRRITABLE BEHAVIOR. ALL NEEDS ATTENDED AND ANTICIPATED.WILL CONT. MONITORING FOR SAFETY AND BEHAVIOR.
[2021-09-09 20:00] VITALS: BP 123/78
--- NOTE | 2021-09-10 06:33 | NUR ---
RN NOTES: RECEIVED PATIENT LAYING ON BED, EASILY AGITAED, GUARDED, SUSPICIOUS, DISORGANIZED, PARANOID, TALKING TO SELF NO S/S OF DISTRESS. MED COMPLY IN APARTMENT MAINTENANCE . WILL CONTINUE TO MONITOR Q15 FOR MOOD, SAFETY AND BEHAVIOR.
--- NOTE | 2021-09-10 06:41 | NUR ---
RN NOTES: PATIENT LAYING ON BED, EASILY AGITAED, GUARDED, SUSPICIOUS, DISORGANIZED, PARANOID, TALKING TO SELF NO S/S OF DISTRESS. MED COMPLY IN DIRECTOR TRIAL . WILL CONTINUE TO MONITOR Q15 FOR MOOD, SAFETY AND BEHAVIOR.
--- NOTE | 2021-09-10 06:46 | NUR ---
RN NOTES: PT. REFUSED AM LABS , ENCOURAGED X3 RISKS AND BENEFITS EXPLINED ,BUT PT. STRONGLY REFUSED .
[2021-09-10 08:00] VITALS: BP 131/72
[2021-09-10] MEDS: PANTOPRAZOLE 40 MG TABLET.DR PO SCH ×2 (08:00→16:33)
[2021-09-10] MEDS: risperiDONE 1 MG TABLET PO SCH ×3 (08:57→21:08)
[2021-09-10] MEDS: MULTIVITAMINS,THERAGRAN 1 UDTAB TABLET PO SCH (08:57)
[2021-09-10] MEDS: MONTELUKAST SODIUM (10MG) 10 MG TABLET PO SCH (08:58)
[2021-09-10] MEDS: LOSARTAN POTASSIUM 50 MG TABLET PO SCH (08:58)
[2021-09-10] MEDS: CALCIUM CARB 600MG /VIT D 1 EACH TABLET PO SCH (09:00)
[2021-09-10] MEDS: DIVALPROEX SODIUM 125 MG CAP.SPRINK PO SCH ×3 (09:00→16:33)
[2021-09-10] MEDS: FLUTICASONE PROPIONATE 16 GM BOTTLE NS SCH (09:02)
[2021-09-10] MEDS: LIDOCAINE 5% (PATCH) 1 EA PATCH TP SCH (09:03)
--- NOTE | 2021-09-10 11:00 | NUR ---
RN-NOTES PATIENT REFUSED LABS DRAW DESPITE EXPLANATIONS OF THE RISK AND BENEFITS. PATIENT GETS ANGRY AND ARGUMENTATIVE TO THE RADIOLOGICAL EQUIPMENT SPECIALIST AND THE LAB STAFF. X3 ATTEMPT.
--- NOTE | 2021-09-10 13:59 | NUR ---
RN-NOTES PATIENT SITTING ON BED, AWAKE, A/O X2,READING MAGAZINE GUARDED,NO ACUTE DISTRESS NOTED.COMPLIANT WITH MEDICATIONS.NOTED WITH EASILY ANGRY AND IRRITABLE BEHAVIOR. ABLE TO AMBULATE IN THE BATHROOM USING WALKER. MINIMAL ASSIST WITH ADL'S. ALL NEEDS ATTENDED AND ANTICIPATED. Q15 MINUTES MONITORING FOR SAFETY AND BEHAVIOR.
[2021-09-10 20:43] VITALS: BP 126/70
--- NOTE | 2021-09-11 03:36 | NUR ---
RN NOTES: PATIENT LAYING ON BED, EASILY AGITAED, GUARDED, SUSPICIOUS, DISORGANIZED, PARANOID, TALKING TO SELF NO S/S OF DISTRESS. MED COMPLY IN DATA CONTROL CLERK . WILL CONTINUE TO MONITOR Q15 FOR MOOD, SAFETY AND BEHAVIOR.
[2021-09-11 08:00] VITALS: BP 140/62
[2021-09-11] MEDS: CALCIUM CARB 600MG /VIT D 1 EACH TABLET PO SCH (08:17)
[2021-09-11] MEDS: LOSARTAN POTASSIUM 50 MG TABLET PO SCH (08:17)
[2021-09-11] MEDS: MULTIVITAMINS,THERAGRAN 1 UDTAB TABLET PO SCH (08:18)
[2021-09-11] MEDS: PANTOPRAZOLE 40 MG TABLET.DR PO SCH ×2 (08:18→16:11)
[2021-09-11] MEDS: MONTELUKAST SODIUM (10MG) 10 MG TABLET PO SCH (08:18)
[2021-09-11] MEDS: LIDOCAINE 5% (PATCH) 1 EA PATCH TP SCH (08:18)
[2021-09-11] MEDS: DIVALPROEX SODIUM 125 MG CAP.SPRINK PO SCH ×3 (08:18→16:11)
[2021-09-11] MEDS: risperiDONE 1 MG TABLET PO SCH ×3 (08:18→21:29)
[2021-09-11] MEDS: FLUTICASONE PROPIONATE 16 GM BOTTLE NS SCH (08:19)
--- NOTE | 2021-09-11 09:00 | NUR ---
RN NOTE- UNCHANGED FROM NOC SHIFT, RECEIVED PATIENT LAYING ON BED, AWAKE, A/O X2, GUARDED,NO ACUTE DISTRESS NOTED.COMPLIANT WITH MEDICATIONS.NOTED WITH EASILY ANGRY AND IRRITABLE BEHAVIOR. ABLE TO AMBULATE IN THE BATHROOM USING WALKER. NEEDS MINIMAL ASSIST WITH ADL'S. ALL NEEDS ATTENDED AND ANTICIPATED.WILL CONT. MONITORING FOR SAFETY AND BEHAVIOR.
[2021-09-11 16:00] VITALS: BP 126/76
--- NOTE | 2021-09-11 19:35 | NUR ---
RN NOTES RECEIVED PATIENT SLEEPING BUT AROUSABLE, A/OX3, REFUSED SKIN ASSESSMENT , NOT IN DISTRESS, SAFETY MEASURES APPLIED, WILL CONTINUE TO MONITOR
[2021-09-11 19:47] VITALS: BP 112/66
[2021-09-11 19:50] VITALS: BP 112/66
--- NOTE | 2021-09-12 06:38 | NUR ---
RN NOTES AWAKE, RAPID TEST DONE, MORNING CARE RENDERED, NOT IN DISTRESS SAFETY MEASURES APPLIED, PT. NEEDS ATTENDED
[2021-09-12 08:00] VITALS: BP 136/77
[2021-09-12] MEDS: PANTOPRAZOLE 40 MG TABLET.DR PO SCH (08:03)
[2021-09-12] MEDS: CALCIUM CARB 600MG /VIT D 1 EACH TABLET PO SCH (08:03)
[2021-09-12] MEDS: MULTIVITAMINS,THERAGRAN 1 UDTAB TABLET PO SCH (08:03)
[2021-09-12 08:04] VITALS: BP 133/68
[2021-09-12] MEDS: DIVALPROEX SODIUM 125 MG CAP.SPRINK PO SCH ×2 (08:04→12:22)
[2021-09-12] MEDS: MONTELUKAST SODIUM (10MG) 10 MG TABLET PO SCH (08:04)
[2021-09-12] MEDS: risperiDONE 1 MG TABLET PO SCH ×2 (08:04→12:22)
[2021-09-12] MEDS: LOSARTAN POTASSIUM 50 MG TABLET PO SCH (08:04)
[2021-09-12] MEDS: LIDOCAINE 5% (PATCH) 1 EA PATCH TP SCH (08:08)
--- NOTE | 2021-09-12 08:10 | NUR ---
SW Discharge Note: Patient will be discharged to [facility]p facility [facility] [address], [place] [address]; ). Please arrange transportation at 1PM. Barkeep spoke with Jackson cattle inspector at [facility]; ([phone]), who stated patient will be accepted today. Patients daughter Ginna ([phone]) is notified and telephonic nurse case manager Paty ([phone]). Patient is alert and oriented x2 and is unable to plan for self-care. Patient denies any suicidal or homicidal ideations. Patient is aware and agreeable with discharge plans. Patient will continue to follow-up with (psychiatrist) Dr. Hernandez [address], [place] [address]; ([phone]) and (sign language instructor) Dr. Keita [address], [place] [address]; ([phone]). Patient presents with euthymic and congruent mood.
[2021-09-12] MEDS: FLUTICASONE PROPIONATE 16 GM BOTTLE NS SCH (09:35)
--- NOTE | 2021-09-12 13:38 | NUR ---
GPS DISCHARGE NOTE: PATIENT 75 Y/O FEMALE DISCHARGE [place] [address],[phone].PATIENT IN STABLE CONDITION ,VSS, COOPERATIVE COMPLIANT WITH MEDICATIONS AND TX PLAN, PATIENT AMBULATORY WITH WALKER, PT FALL RISK . PATIENT DENIES SI/HI/AVH,INSTRUCTED TO GO TO THE CLOSEST ER IF DEVELOPING SE/HI. PATIENT BEHAVIOR IMPROVED, PSYCHIATRIC TC PLANS MET, MEDICAL TX PLANS DEFERRED FOR CONTINUAL MONITORING. EDICATED PT ABOUT AFTER CARED PLAN( EXIT-CARE) AND COPY PROVIDED.RETURNED ALL PERSONAL BELONGINGS AND VALUABLES TO PATIENT . MEDICATIONS RECONCILED WITH DR. NEWTON Ordonez. ORDER DC HOLD DC PATIENT TO SNF CONTINUE ALL MEDICATIONS. PATIENT WAS SEEN AND EXAMINE BY DR DAILY, MEDICATION RECONCILIATION DONE . REPORT GIVEN TO [facility] RN. PATIENT REFUSED TO SIGN DISCHARGE PAPERWORK DUE TO CONFUSION. REFUSED SKIN ASSESSMENT AND PICTURES.
== END 2021-09-12 13:30 | DRG 885 ==
LOC: ER 10:10 → GPS 17:18
PROVIDERS: ADMIT Psychiatry & Neurology Psychiatry; ATTEND Legal Medicine
DX: F25.0 Schizoaffective disorder, bipolar type (principal); I10 Essential (primary) hypertension; K21.9 Gastro-esophageal reflux disease without esophagitis; R56.9 Unspecified convulsions; Z22.322 Carrier or suspected carrier of Methicillin resistant Staphylococcus aureus; Z91.14 Patient's other noncompliance with medication regimen; M19.90 Unspecified osteoarthritis, unspecified site; Z20.822 Contact with and (suspected) exposure to COVID-19
CPT/HCPCS: 36415; 80048-TC; 80053-TC; 80061-TC; 80076-TC; 84484-TC; 85025-TC; 87081-TC; 97116-TC; 97530-TC; C9803; G0480; J3490; J7030